=== PATIENT | male | born 1960 | race Caucasian/White ===

== ENCOUNTER 2020-01-17 17:40 | Inpatient (IN) | payer OTHER ==
[~2020-01-17] VITALS: Ht 185.4 cm; Wt 98.3 kg
[2020-01-17 17:35] VITALS: BP 130/64
--- NOTE | 2020-01-17 18:03 | PDOC1 ---
History and Physical Date of Admission: Date of Admission DATE: 01/17/20 TIME: 18:03 Chief Complaint: Chief Complain: Abdominal pain History of Present Illness: HPI: Patient is 59-year-old male with past medical history of COPD, chronic smoker who is transferred from [facility] for epigastric and periumbilical abdominal pain due to cholecystitis found on CT scan. Patient describes abdominal pain that started about 6 to 8 months ago, however last night patient woke up from the pain 10 out of 10 and also had some bloody stool. Pain travels up and down the midline. There are no exacerbating or alleviating factors. Patient has not seen a surgeon or a GI doctor for the his gallstones. This is the first time he is heard he had gallstones. Denies chest pain, shortness of breath, diarrhea, or fevers Past Medical/Surgical History: PMH/PSH: COPD History of dental extraction in the 80s Allergies: Allergies: Coded Allergies: No Known Drug Allergies (Unverified , 01/17/20) Family History: Family History: Review and none reported Social History: Social History: 2 pack smoker daily for more than 30 years ROS: Review of Systems Review of System REVIEW OF SYSTEMS: GENERAL: Denies weakness SKIN: No bruising, hair changes or rashes. EYES: No blurred, double or loss of vision. NOSE AND THROAT: No history of nosebleeds, hoarseness or sore throat. HEART: No history of palpitations, chest pain or shortness of breath on exertion. LUNGS: Denies cough, hemoptysis, wheezing or shortness of breath. GASTROINTESTINAL: Denies changes in appetite, nausea, vomiting, diarrhea or constipation. GENITOURINARY: No history of frequency, urgency, hesitancy or nocturia. NEUROLOGIC: Denies history of numbness, tingling, or tremor. PSYCHIATRIC: No history of panic, anxiety or depression. ENDOCRINE: No history of heat or cold intolerance, polyuria or polydipsia. EXTREMITIES: Denies joint pain, pain on walking or stiffness. Physical Exam: Vital Signs: Vital Signs Date Time Temp Pulse Resp B/P (MAP) Pulse Ox O2 Delivery O2 Flow Rate FiO2 01/17/20 17:35 99.2 70 18 130/64 (86) 97 Room Air 99.2 Physcial Exam: GEN: No apparent distress. Alert and oriented HEENT: Normal cephalic, atraumatic, external auditory canals are patent EYES: Extraocular muscles are intact, pupil are equally round and reactive to light and accommodation MUSCULOSKELETAL: Well developed , well nourished, good range of motion ENDOCRINE: No thyromegaly was palpated LYMPHATICS: No cervical chain or axillary nodes were noted HEMATOPOIETIC: No bruising NECK: Supple, no JVD, no thyromegaly was noted LUNGS: Clear to auscultation in all lung matta without rhonchi or wheezing HEART: RRR, S!, S2 present. Peripheral pulses intact, no obvious murmurs noted ABDOMEN: Soft, nontender. Positive bowel sounds, no organomegaly, normal bowel sounds EXTREMITIES: Without clubbing, cyanosis, or edema. Pedal pulses intact. Negative Homans sign NEUROLOGIC: Normal speech and tone. A&O x 3, moves all extremities, no obvious focal deficits PSYCHIATRIC: Normal affect, normal mood. Stable SKIN: No ulcerations or rashes, good skin turgor, no jaundice VASCULAR: Good capillary refill, neurovascular bundle appears to be intact Labs: Labs: All labs, images, and reports were reviewed by me personally (from [place] are in the chart Images: Images All labs, images, and reports were reviewed by me personally Assessment/Plan Assessment/Plan Acute abdominal pain due to acute cholecystitis COPD Admit to medicine Pending abdominal ultrasound Pending FOBT Surgery consult Serial abdominal exams Consider GI consult if dilated CBD and concern for choledocholithiasis IV Dilaudid as needed N.p.o. Lovenox for DVT prophylaxis, hold 12 hours before surgery Full code Discussed with RN and SW Dispo pending surgery evaluation Justicifation of Admission Dx: Justifications for Admission: Justification of Admission Dx: Yes (Acute cholecystitis) BELKIS WORTHY MD Jan 17, 2020 18:03
[2020-01-17] MEDS ORDERED: ESOM20CA PO (18:16)
[2020-01-17] MEDS ORDERED: MAGN296S68 PO (18:16)
[2020-01-17] MEDS ORDERED: IBUP-1060 PO (18:16)
[2020-01-17] MEDS ORDERED: ALBU2.5V8 IH (18:16)
[2020-01-17] MEDS ORDERED: FLUT1BLS3 IH (18:19)
[2020-01-17 19:00] VITALS: BP 103/60
--- NOTE | 2020-01-17 19:38 | NUR ---
59 yr old male admitted from [facility] with chief complaint of abdominal pain that started last evening around 2300. no emesis until around 1am. no blood noted. admission history completed. remains npo until dr. quan calls regarding surgery tonight. Dr. Gerber here orders for us abd iv fluids and pain med obtained. report given
--- NOTE | 2020-01-17 20:50 | RAD ---
Exam: Ultrasound abdomen complete Indication: Dilated common bile duct Technique: Real-time grayscale and color Doppler images of the abdomen were obtained by the department primary montessori teacher. Comparisons: CT 01/17/2020 FINDINGS: Liver contour is normal. Hepatopedal flow in the portal vein. Gallbladder is dilated with gallstones. There is pericholecystic fluid and wall thickening. Common bile duct measures 5 mm. Right kidney measures 11.5 cm in length. No hydronephrosis. Left kidney measures 11.4 cm in length. No hydronephrosis. Pancreas is not well seen secondary to overlying bowel gas. Spleen measures 11.1 cm in long axis. Aorta and IVC are not well seen. IMPRESSION: 1. Sonographic evidence suggestive of acute cholecystitis. 2. No hydronephrosis. 3. Normal sonographic appearance of the liver. 4. No splenomegaly. 5. Exam is limited secondary to bowel gas. Electronically signed by: Cinthya Barclay MD (01/17/2020 8:47 PM) [id number]
[2020-01-17 22:36] VITALS: BP 113/48
[2020-01-17] MEDS: IV NORMAL SALINE 1000ML BAG 1,000 ML IV SCH (22:45)
[2020-01-17] MEDS: HYDROmorphone 2 MG/ML VIAL IVP PRN (22:46)
--- NOTE | 2020-01-17 22:54 | NUR ---
Both Covid 19 test and Covid Rapid test collected at this time with help of ED Nurse, Candy SUAZO, Patient tolerated procedure well, both test was walked down to lab.
[2020-01-18] VITALS (11 sets, daily range): BP systolic 119–143; BP diastolic 64–81
[2020-01-18] MEDS: HYDROmorphone 2 MG/ML VIAL IVP PRN ×4 (06:46→22:29)
[2020-01-18] MEDS: IV NORMAL SALINE 1000ML BAG 1,000 ML IV SCH ×2 (06:47→14:10)
[2020-01-18] MEDS: IV RINGERS,LACTATED 1000ML 1,000 ML IV SCH ×4 (08:03→22:31)
[2020-01-18] MEDS ORDERED: ONDANSETRON PF 4 MG/2 ML VIAL. IV PRN (08:15)
[2020-01-18] MEDS ORDERED: MORPHINE SULFATE 2 MG/ML VIAL. IV PRN ×2 (08:15→14:00)
[2020-01-18] MEDS ORDERED: fentaNYL PF VIAL 100 MCG/2 ML VIAL IV PRN (08:15)
[2020-01-18] MEDS ORDERED: LIDOCAINE 1% PF 2 ML VIAL. ID PRN (08:15)
[2020-01-18] MEDS ORDERED: HYDROmorphone 2 MG/ML VIAL IV PRN (08:15)
[2020-01-18] MEDS ORDERED: PROCHLORPERAZINE 10 MG/2 ML VIAL. IV PRN (08:15)
[2020-01-18] MEDS: NICOTINE 21MG PATCH. TD PRN (10:01)
[2020-01-18 10:15] LABS: BASO % 0 % (0-3); EOS # 0.2 x10^3/uL (0.0-0.7); EOS % 2 % (0-3); HEMATOCRIT 38.9 % (39.0-53.0); HEMOGLOBIN 13.6 g/dL (13.0-17.5); LYMPH # 1.7 x10^3/uL (1.0-4.8); LYMPH % 14 % (24-48); MEAN CORPUSCULAR HEMOGLOBIN 32 pg (25-35); MEAN CORPUSCULAR HGB CONC 35 g/dL (31-37); MEAN CORPUSCULAR VOLUME 91 fL (79-100); MONO # 1.2 x10^3/uL (0.0-1.1); MONO % 10 % (0-9); NEUT % 75 % (31-73); PLATELET COUNT 244 x10^3/uL (140-400); RED BLOOD COUNT 4.29 x10^6/uL (4.30-5.70); RED CELL DISTRIBUTION WIDTH 14.1 % (11.5-14.5); WHITE BLOOD COUNT 12.1 x10^3/uL (4.0-11.0)
[2020-01-18 10:26] LABS: ALBUMIN 2.7 g/dL (3.4-5.0); ALBUMIN/GLOBULIN RATIO 0.7 (1.0-1.7); POTASSIUM 4.3 mmol/L (3.5-5.1); TOTAL BILIRUBIN 0.7 mg/dL (0.2-1.0); TOTAL PROTEIN 6.8 g/dL (6.4-8.2)
[2020-01-18] MEDS ORDERED: ceFAZolin 2GM PREMIX 2 GM/50 ML BAG IV ONE (11:00)
--- NOTE | 2020-01-18 11:07 | NUR ---
SW following. Discussed with RN, pt from home with family, independent. Pt having surgery today. RN advised no SW needs.
--- NOTE | 2020-01-18 11:27 | NUR ---
Patient left floor for surgery at approximately 1101
[2020-01-18] MEDS ORDERED: fentaNYL PF VIAL 100 MCG/2 ML VIAL ONE ×3 (11:39→14:11)
[2020-01-18] MEDS ORDERED: ROCURONIUM 50 MG/5 ML VIAL. ONE ×2 (11:39→13:12)
[2020-01-18] MEDS ORDERED: SEVOFLURANE 61 TO 120 MINUTES. IH ONE (11:39)
[2020-01-18] MEDS ORDERED: NEOSTIGMINE METHYLSULFATE 5 MG/5 ML SYRINGE. ONE (11:39)
[2020-01-18] MEDS ORDERED: MIDAZOLAM HCL/PF 2 MG/2 ML VIAL. ONE (11:39)
[2020-01-18] MEDS ORDERED: GLYCOPYRROLATE 1 MG/5 ML VIAL. ONE (11:39)
[2020-01-18] MEDS ORDERED: KETOROLAC 30 MG/ML VIAL. ONE (11:40)
[2020-01-18] MEDS ORDERED: ONDANSETRON PF 4 MG/2 ML VIAL. ONE (11:40)
[2020-01-18] MEDS ORDERED: DEXAMETHASONE SOD PHOS 4 MG/ML VIAL ONE (11:40)
[2020-01-18] MEDS ORDERED: LIDOCAINE 2% PF 5 ML VIAL. ONE (11:40)
[2020-01-18] MEDS ORDERED: PROPOFOL 10 MG/ML (20ML) VIAL. IV ONE ×2 (11:40)
[2020-01-18] MEDS ORDERED: SURGICEL HEMOSTAT 4X8 EACH. ONE (11:42)
[2020-01-18] MEDS ORDERED: IOHEXOL 300 MG/ML 50 ML VIAL. ONE (11:42)
[2020-01-18] MEDS ORDERED: BISACODYL 10 MG SUPP.RECT. ONE (11:42)
[2020-01-18] MEDS ORDERED: BUPIVACAINE-EPI 0.5%-1:200000 MPF 30 ML VIAL. ONE (11:42)
[2020-01-18] MEDS ORDERED: HEPARIN for IV BOLUS 10,000 UNIT/10 ML VIAL. ONE (11:42)
[2020-01-18] MEDS ORDERED: ALBUTEROL SULFATE 2.5 MG/3 ML NEBU. NEB PRN (12:15)
--- NOTE | 2020-01-18 12:32 | PDOC2 ---
CONSULT Date of Consult Date of Consult DATE: 01/18/20 TIME: 12:27 Reason for Consult Reason for Consult: Calculous cholecystitis Referring Physician Referring Physician: Dr. Renner Identification/Chief Complaint Chief Complaint abd pain Source Source: Chart review, Patient History of Present Illness Reason for Visit: 59 yo M with 6-8 month history of abd pain, treated with laxatives with resolution. However, pain worsened over last couple of days with associated chills. He was seen in [facility] with diagnosis of cholecystitis. He is seen in preop and continues to have pain. Past Medical History Pulmonary: COPD Past Surgical History Past Surgical History: No pertinent history Family History Family History: No Significant Social History 2 packs per day ALCOHOL: rare Current Medications Current Medications Current Medications Hydromorphone HCl (Dilaudid) 0.2 mg PRN Q2HRS PRN IVP PAIN Last administered on 01/18/20at 09:04; Start 01/17/20 at 19:00 Sodium Chloride 1,000 ml @ 100 mls/hr Q10H IV Last administered on 01/18/20at 06:47; Start 01/17/20 at 19:30 Cefazolin Sodium/ Dextrose 50 ml @ 100 mls/hr 1X PREOP PRN IV PRIOR TO PROCEDURE; Start 01/18/20 at 12:00; Stop 01/18/20 at 18:00 Ondansetron HCl (Zofran) 4 mg PRN Q6HRS PRN IV NAUSEA/VOMITING; Start 01/18/20 at 08:15; Stop 01/19/20 at 08:14 Fentanyl Citrate (Fentanyl 2ml Vial) 25 mcg PRN Q5MIN PRN IV MILD PAIN 1-3; Start 01/18/20 at 08:15; Stop 01/19/20 at 08:14 Fentanyl Citrate (Fentanyl 2ml Vial) 50 mcg PRN Q5MIN PRN IV MODERATE TO SEVERE PAIN; Start 01/18/20 at 08:15; Stop 01/19/20 at 08:14 Morphine Sulfate (Morphine Sulfate) 1 mg PRN Q10MIN PRN IV SEVERE PAIN 7-10; Start 01/18/20 at 08:15; Stop 01/19/20 at 08:14 Ringer's Solution 1,000 ml @ 30 mls/hr Q24H IV ; Start 01/18/20 at 08:03; Stop 01/18/20 at 20:02 Lidocaine HCl (Xylocaine-Mpf 1% 2ml Vial) 2 ml PRN 1X PRN ID PRIOR TO IV START; Start 01/18/20 at 08:15; Stop 01/19/20 at 08:14 Hydromorphone HCl (Dilaudid) 0.5 mg PRN Q10MIN PRN IV SEV PAIN, Second choice; Start 01/18/20 at 08:15; Stop 01/19/20 at 08:14 Prochlorperazine Edisylate (Compazine) 5 mg PACU PRN PRN IV NAUSEA, MRX1; Start 01/18/20 at 08:15; Stop 01/19/20 at 08:14 Nicotine (Nicoderm Cq 21mg) 1 patch PRN DAILY PRN TD SMOKING CESSATION Last administered on 01/18/20at 10:01; Start 01/18/20 at 09:30 Sevoflurane (Ultane) 60 ml STK-MED ONCE IH ; Start 01/18/20 at 11:39; Stop 01/18/20 at 11:39; Status DC Rocuronium Batson (Zemuron) 50 mg STK-MED ONCE .ROUTE ; Start 01/18/20 at 11:39; Stop 01/18/20 at 11:39; Status DC Fentanyl Citrate (Fentanyl 2ml Vial) 100 mcg STK-MED ONCE .ROUTE ; Start 01/18/20 at 11:39; Stop 01/18/20 at 11:39; Status DC Neostigmine Batson (Neostigmine Methylsulfate) 5 mg STK-MED ONCE .ROUTE ; Start 01/18/20 at 11:39; Stop 01/18/20 at 11:39; Status DC Midazolam HCl (Versed) 2 mg STK-MED ONCE .ROUTE ; Start 01/18/20 at 11:39; Stop 01/18/20 at 11:40; Status DC Glycopyrrolate (Robinul) 1 mg STK-MED ONCE .ROUTE ; Start 01/18/20 at 11:39; Stop 01/18/20 at 11:40; Status DC Propofol (Diprivan) 200 mg STK-MED ONCE IV ; Start 01/18/20 at 11:40; Stop 01/18/20 at 11:40; Status DC Propofol (Diprivan) 200 mg STK-MED ONCE IV ; Start 01/18/20 at 11:40; Stop 01/18/20 at 11:40; Status DC Ondansetron HCl (Zofran) 4 mg STK-MED ONCE .ROUTE ; Start 01/18/20 at 11:40; Stop 01/18/20 at 11:40; Status DC Dexamethasone Sodium Phosphate (Decadron) 4 mg STK-MED ONCE .ROUTE ; Start 01/17 at 11:40; Stop 01/18/20 at 11:40; Status DC Ketorolac Tromethamine (Toradol 30mg Vial) 30 mg STK-MED ONCE .ROUTE ; Start at 11:40; Stop 01/18/20 at 11:40; Status DC Lidocaine HCl (Lidocaine Pf 2% Vial) 5 ml STK-MED ONCE .ROUTE ; Start 01/18/20 at 11:40; Stop 01/18/20 at 11:40; Status DC Bupivacaine HCl/ Epinephrine Bitart (Sensorcain-Epi 0.5%-1:080195 Mpf) 30 ml STK -MED ONCE .ROUTE ; Start 01/18/20 at 11:42; Stop 01/18/20 at 11:42; Status DC Heparin Sodium (Porcine) (Heparin Sodium) 10,000 unit STK-MED ONCE .ROUTE ; Start 01/18/20 at 11:42; Stop 01/18/20 at 11:42; Status DC Iohexol (Omnipaque 300 Mg/ml) 50 ml STK-MED ONCE .ROUTE ; Start 01/18/20 at 11:42; Stop 01/18/20 at 11:42; Status DC Cellulose (Surgicel Hemostat 4x8) 1 each STK-MED ONCE .ROUTE ; Start 01/18/20 at 11:42; Stop 01/18/20 at 11:42; Status DC Bisacodyl (Dulcolax Supp) 10 mg STK-MED ONCE .ROUTE ; Start 01/18/20 at 11:42; Stop 01/18/20 at 11:43; Status DC Albuterol Sulfate (Ventolin Neb Soln) 2.5 mg PRN Q30MIN PRN NEB COUGH Last administered on 01/18/20at 12:11; Start 01/18/20 at 12:15 Active Scripts Active Reported Trelegy Ellipta 100-62.5-25 (Fluticasone/Umeclidin/Vilanter) 1 Each Blst.w.dev 1 Each IH DAILY Ibuprofen 800 Mg Tablet 800 Mg PO BID PRN Magnesium Citrate 296 Ml Solution 75 Ml PO HS Nexium Capsule (Esomeprazole Magnesium) 20 Mg Capsule.dr 1 Cap PO DAILY Proair Hfa Inhaler (Albuterol Sulfate) 8.5 Gm Hfa.aer.ad 2 Puff IH PRN Q4-6HRS PRN 21 Days Allergies Allergies: Coded Allergies: No Known Drug Allergies (Unverified , 01/17/20) ROS Gastrointestinal: Yes Abdominal Pain Physical Exam General: Alert, Oriented X3, Cooperative, mild distress HEENT: Atraumatic Lungs: Normal air movement Abdomen: Soft, Other (mild TTP RUQ) Extremities: No clubbing, No cyanosis Skin: No rashes, No breakdown Neuro: Normal speech, Sensation intact Psych/Mental Status: Mental status NL, Mood NL Vitals VITALS Vital Signs Date Time Temp Pulse Resp B/P (MAP) Pulse Ox O2 Delivery O2 Flow Rate FiO2 01/18/20 11:10 98.1 71 15 112/58 94 Room Air 98.1 Labs Labs Laboratory Tests Test 01/17/20 22:17 01/18/20 09:55 SARS-CoV-2 Antigen (Rapid) Negative (NEGATIVE) White Blood Count 12.1 x10^3/uL (4.0-11.0) Red Blood Count 4.29 x10^6/uL (4.30-5.70) Hemoglobin 13.6 g/dL (13.0-17.5) Hematocrit 38.9 % (39.0-53.0) Mean Corpuscular Volume 91 fL (79-100) Mean Corpuscular Hemoglobin 32 pg (25-35) Mean Corpuscular Hemoglobin Concent 35 g/dL (31-37) Red Cell Distribution Width 14.1 % (11.5-14.5) Platelet Count 244 x10^3/uL (140-400) Neutrophils (%) (Auto) 75 % (31-73) Lymphocytes (%) (Auto) 14 % (24-48) Monocytes (%) (Auto) 10 % (0-9) Eosinophils (%) (Auto) 2 % (0-3) Basophils (%) (Auto) 0 % (0-3) Neutrophils # (Auto) 9.0 x10^3/uL (1.8-7.7) Lymphocytes # (Auto) 1.7 x10^3/uL (1.0-4.8) Monocytes # (Auto) 1.2 x10^3/uL (0.0-1.1) Eosinophils # (Auto) 0.2 x10^3/uL (0.0-0.7) Basophils # (Auto) 0.0 x10^3/uL (0.0-0.2) Sodium Level 135 mmol/L (136-145) Potassium Level 4.3 mmol/L (3.5-5.1) Chloride Level 101 mmol/L (98-107) Carbon Dioxide Level 28 mmol/L (21-32) Anion Gap 6 (6-14) Blood Urea Nitrogen 7 mg/dL (8-26) Creatinine 1.0 mg/dL (0.7-1.3) Estimated GFR (Cockcroft-Gault) 77.0 BUN/Creatinine Ratio 7 (6-20) Glucose Level 93 mg/dL (70-99) Calcium Level 8.0 mg/dL (8.5-10.1) Total Bilirubin 0.7 mg/dL (0.2-1.0) Aspartate Amino Transf (AST/SGOT) 14 U/L (15-37) Alanine Aminotransferase (ALT/SGPT) 19 U/L (16-63) Alkaline Phosphatase 97 U/L (46-116) Total Protein 6.8 g/dL (6.4-8.2) Albumin 2.7 g/dL (3.4-5.0) Albumin/Globulin Ratio 0.7 (1.0-1.7) Laboratory Tests Test 01/17/20 22:17 01/18/20 09:55 SARS-CoV-2 Antigen (Rapid) Negative (NEGATIVE) White Blood Count 12.1 x10^3/uL (4.0-11.0) Red Blood Count 4.29 x10^6/uL (4.30-5.70) Hemoglobin 13.6 g/dL (13.0-17.5) Hematocrit 38.9 % (39.0-53.0) Mean Corpuscular Volume 91 fL (79-100) Mean Corpuscular Hemoglobin 32 pg (25-35) Mean Corpuscular Hemoglobin Concent 35 g/dL (31-37) Red Cell Distribution Width 14.1 % (11.5-14.5) Platelet Count 244 x10^3/uL (140-400) Neutrophils (%) (Auto) 75 % (31-73) Lymphocytes (%) (Auto) 14 % (24-48) Monocytes (%) (Auto) 10 % (0-9) Eosinophils (%) (Auto) 2 % (0-3) Basophils (%) (Auto) 0 % (0-3) Neutrophils # (Auto) 9.0 x10^3/uL (1.8-7.7) Lymphocytes # (Auto) 1.7 x10^3/uL (1.0-4.8) Monocytes # (Auto) 1.2 x10^3/uL (0.0-1.1) Eosinophils # (Auto) 0.2 x10^3/uL (0.0-0.7) Basophils # (Auto) 0.0 x10^3/uL (0.0-0.2) Sodium Level 135 mmol/L (136-145) Potassium Level 4.3 mmol/L (3.5-5.1) Chloride Level 101 mmol/L (98-107) Carbon Dioxide Level 28 mmol/L (21-32) Anion Gap 6 (6-14) Blood Urea Nitrogen 7 mg/dL (8-26) Creatinine 1.0 mg/dL (0.7-1.3) Estimated GFR (Cockcroft-Gault) 77.0 BUN/Creatinine Ratio 7 (6-20) Glucose Level 93 mg/dL (70-99) Calcium Level 8.0 mg/dL (8.5-10.1) Total Bilirubin 0.7 mg/dL (0.2-1.0) Aspartate Amino Transf (AST/SGOT) 14 U/L (15-37) Alanine Aminotransferase (ALT/SGPT) 19 U/L (16-63) Alkaline Phosphatase 97 U/L (46-116) Total Protein 6.8 g/dL (6.4-8.2) Albumin 2.7 g/dL (3.4-5.0) Albumin/Globulin Ratio 0.7 (1.0-1.7) Images Images Ct and US c/w calculous cholecystitis Assessment/Plan Assessment/Plan calculous cholecystitis TO OR for laparoscopic versus open cholecystectomy with cholangiogram. R/R/B/A d/w pt. Risks, including, but not limited to: bleeding, infection, damage to surrounding structures, risk of anesthesia, risk of open, risk of . He appears to understand, his questions are answered and he elects to proceed. Thanks for consult! JEWELS MCRAE MD Jan 18, 2020 12:32
[2020-01-18] MEDS ORDERED: PHENYLEPHRINE in 0.9% NACL PF 1 MG/10 ML SYRINGE. IV ONE (12:35)
[2020-01-18] MEDS ORDERED: GLUCAGON,HUMAN RECOMBINANT 1 MG/ML VIAL. ONE (13:00)
--- NOTE | 2020-01-18 13:36 | PDOC ---
PROGRESS NOTES Chief Complaint Chief Complaint acute cholecystitis calculous cholecystitis stable COPD History of Present Illness History of Present Illness to OR, , plan DC eval after, maybe tomorrow if late today Vitals Vitals Vital Signs Date Time Temp Pulse Resp B/P (MAP) Pulse Ox O2 Delivery O2 Flow Rate FiO2 01/18/20 11:10 98.1 71 15 112/58 94 Room Air 98.1 Physical Exam General: Alert, Oriented X3, Cooperative, mild distress Abdomen: Soft, Other (mild TTP RUQ) Extremities: No clubbing, No cyanosis Skin: No rashes, No breakdown Labs LABS Laboratory Tests Test 01/17/20 22:17 01/18/20 09:55 SARS-CoV-2 Antigen (Rapid) Negative (NEGATIVE) White Blood Count 12.1 x10^3/uL (4.0-11.0) Red Blood Count 4.29 x10^6/uL (4.30-5.70) Hemoglobin 13.6 g/dL (13.0-17.5) Hematocrit 38.9 % (39.0-53.0) Mean Corpuscular Volume 91 fL (79-100) Mean Corpuscular Hemoglobin 32 pg (25-35) Mean Corpuscular Hemoglobin Concent 35 g/dL (31-37) Red Cell Distribution Width 14.1 % (11.5-14.5) Platelet Count 244 x10^3/uL (140-400) Neutrophils (%) (Auto) 75 % (31-73) Lymphocytes (%) (Auto) 14 % (24-48) Monocytes (%) (Auto) 10 % (0-9) Eosinophils (%) (Auto) 2 % (0-3) Basophils (%) (Auto) 0 % (0-3) Neutrophils # (Auto) 9.0 x10^3/uL (1.8-7.7) Lymphocytes # (Auto) 1.7 x10^3/uL (1.0-4.8) Monocytes # (Auto) 1.2 x10^3/uL (0.0-1.1) Eosinophils # (Auto) 0.2 x10^3/uL (0.0-0.7) Basophils # (Auto) 0.0 x10^3/uL (0.0-0.2) Sodium Level 135 mmol/L (136-145) Potassium Level 4.3 mmol/L (3.5-5.1) Chloride Level 101 mmol/L (98-107) Carbon Dioxide Level 28 mmol/L (21-32) Anion Gap 6 (6-14) Blood Urea Nitrogen 7 mg/dL (8-26) Creatinine 1.0 mg/dL (0.7-1.3) Estimated GFR (Cockcroft-Gault) 77.0 BUN/Creatinine Ratio 7 (6-20) Glucose Level 93 mg/dL (70-99) Calcium Level 8.0 mg/dL (8.5-10.1) Total Bilirubin 0.7 mg/dL (0.2-1.0) Aspartate Amino Transf (AST/SGOT) 14 U/L (15-37) Alanine Aminotransferase (ALT/SGPT) 19 U/L (16-63) Alkaline Phosphatase 97 U/L (46-116) Total Protein 6.8 g/dL (6.4-8.2) Albumin 2.7 g/dL (3.4-5.0) Albumin/Globulin Ratio 0.7 (1.0-1.7) Comment Review of Relevant I have reviewed the following items fannie (where applicable) has been applied. Labs Laboratory Tests Test 01/17/20 22:17 01/18/20 09:55 SARS-CoV-2 Antigen (Rapid) Negative (NEGATIVE) White Blood Count 12.1 x10^3/uL (4.0-11.0) Red Blood Count 4.29 x10^6/uL (4.30-5.70) Hemoglobin 13.6 g/dL (13.0-17.5) Hematocrit 38.9 % (39.0-53.0) Mean Corpuscular Volume 91 fL (79-100) Mean Corpuscular Hemoglobin 32 pg (25-35) Mean Corpuscular Hemoglobin Concent 35 g/dL (31-37) Red Cell Distribution Width 14.1 % (11.5-14.5) Platelet Count 244 x10^3/uL (140-400) Neutrophils (%) (Auto) 75 % (31-73) Lymphocytes (%) (Auto) 14 % (24-48) Monocytes (%) (Auto) 10 % (0-9) Eosinophils (%) (Auto) 2 % (0-3) Basophils (%) (Auto) 0 % (0-3) Neutrophils # (Auto) 9.0 x10^3/uL (1.8-7.7) Lymphocytes # (Auto) 1.7 x10^3/uL (1.0-4.8) Monocytes # (Auto) 1.2 x10^3/uL (0.0-1.1) Eosinophils # (Auto) 0.2 x10^3/uL (0.0-0.7) Basophils # (Auto) 0.0 x10^3/uL (0.0-0.2) Sodium Level 135 mmol/L (136-145) Potassium Level 4.3 mmol/L (3.5-5.1) Chloride Level 101 mmol/L (98-107) Carbon Dioxide Level 28 mmol/L (21-32) Anion Gap 6 (6-14) Blood Urea Nitrogen 7 mg/dL (8-26) Creatinine 1.0 mg/dL (0.7-1.3) Estimated GFR (Cockcroft-Gault) 77.0 BUN/Creatinine Ratio 7 (6-20) Glucose Level 93 mg/dL (70-99) Calcium Level 8.0 mg/dL (8.5-10.1) Total Bilirubin 0.7 mg/dL (0.2-1.0) Aspartate Amino Transf (AST/SGOT) 14 U/L (15-37) Alanine Aminotransferase (ALT/SGPT) 19 U/L (16-63) Alkaline Phosphatase 97 U/L (46-116) Total Protein 6.8 g/dL (6.4-8.2) Albumin 2.7 g/dL (3.4-5.0) Albumin/Globulin Ratio 0.7 (1.0-1.7) Laboratory Tests Test 01/17/20 22:17 01/18/20 09:55 SARS-CoV-2 Antigen (Rapid) Negative (NEGATIVE) White Blood Count 12.1 x10^3/uL (4.0-11.0) Red Blood Count 4.29 x10^6/uL (4.30-5.70) Hemoglobin 13.6 g/dL (13.0-17.5) Hematocrit 38.9 % (39.0-53.0) Mean Corpuscular Volume 91 fL (79-100) Mean Corpuscular Hemoglobin 32 pg (25-35) Mean Corpuscular Hemoglobin Concent 35 g/dL (31-37) Red Cell Distribution Width 14.1 % (11.5-14.5) Platelet Count 244 x10^3/uL (140-400) Neutrophils (%) (Auto) 75 % (31-73) Lymphocytes (%) (Auto) 14 % (24-48) Monocytes (%) (Auto) 10 % (0-9) Eosinophils (%) (Auto) 2 % (0-3) Basophils (%) (Auto) 0 % (0-3) Neutrophils # (Auto) 9.0 x10^3/uL (1.8-7.7) Lymphocytes # (Auto) 1.7 x10^3/uL (1.0-4.8) Monocytes # (Auto) 1.2 x10^3/uL (0.0-1.1) Eosinophils # (Auto) 0.2 x10^3/uL (0.0-0.7) Basophils # (Auto) 0.0 x10^3/uL (0.0-0.2) Sodium Level 135 mmol/L (136-145) Potassium Level 4.3 mmol/L (3.5-5.1) Chloride Level 101 mmol/L (98-107) Carbon Dioxide Level 28 mmol/L (21-32) Anion Gap 6 (6-14) Blood Urea Nitrogen 7 mg/dL (8-26) Creatinine 1.0 mg/dL (0.7-1.3) Estimated GFR (Cockcroft-Gault) 77.0 BUN/Creatinine Ratio 7 (6-20) Glucose Level 93 mg/dL (70-99) Calcium Level 8.0 mg/dL (8.5-10.1) Total Bilirubin 0.7 mg/dL (0.2-1.0) Aspartate Amino Transf (AST/SGOT) 14 U/L (15-37) Alanine Aminotransferase (ALT/SGPT) 19 U/L (16-63) Alkaline Phosphatase 97 U/L (46-116) Total Protein 6.8 g/dL (6.4-8.2) Albumin 2.7 g/dL (3.4-5.0) Albumin/Globulin Ratio 0.7 (1.0-1.7) Medications Current Medications Hydromorphone HCl (Dilaudid) 0.2 mg PRN Q2HRS PRN IVP PAIN Last administered on 01/18/20at 09:04; Start 01/17/20 at 19:00 Sodium Chloride 1,000 ml @ 100 mls/hr Q10H IV Last administered on 01/18/20at 06:47; Start 01/17/20 at 19:30 Cefazolin Sodium/ Dextrose 50 ml @ 100 mls/hr 1X PREOP PRN IV PRIOR TO PROCEDURE; Start 01/18/20 at 12:00; Stop 01/18/20 at 18:00 Ondansetron HCl (Zofran) 4 mg PRN Q6HRS PRN IV NAUSEA/VOMITING; Start 01/18/20 at 08:15; Stop 01/19/20 at 08:14 Fentanyl Citrate (Fentanyl 2ml Vial) 25 mcg PRN Q5MIN PRN IV MILD PAIN 1-3; Start 01/18/20 at 08:15; Stop 01/19/20 at 08:14 Fentanyl Citrate (Fentanyl 2ml Vial) 50 mcg PRN Q5MIN PRN IV MODERATE TO SEVERE PAIN; Start 01/18/20 at 08:15; Stop 01/19/20 at 08:14 Morphine Sulfate (Morphine Sulfate) 1 mg PRN Q10MIN PRN IV SEVERE PAIN 7-10; Start 01/18/20 at 08:15; Stop 01/19/20 at 08:14 Ringer's Solution 1,000 ml @ 30 mls/hr Q24H IV ; Start 01/18/20 at 08:03; Stop 01/18/20 at 20:02 Lidocaine HCl (Xylocaine-Mpf 1% 2ml Vial) 2 ml PRN 1X PRN ID PRIOR TO IV START; Start 01/18/20 at 08:15; Stop 01/19/20 at 08:14 Hydromorphone HCl (Dilaudid) 0.5 mg PRN Q10MIN PRN IV SEV PAIN, Second choice; Start 01/18/20 at 08:15; Stop 01/19/20 at 08:14 Prochlorperazine Edisylate (Compazine) 5 mg PACU PRN PRN IV NAUSEA, MRX1; Start 01/18/20 at 08:15; Stop 01/19/20 at 08:14 Nicotine (Nicoderm Cq 21mg) 1 patch PRN DAILY PRN TD SMOKING CESSATION Last administered on 01/18/20at 10:01; Start 01/18/20 at 09:30 Sevoflurane (Ultane) 60 ml STK-MED ONCE IH ; Start 01/18/20 at 11:39; Stop 01/18/20 at 11:39; Status DC Rocuronium [place] (Zemuron) 50 mg STK-MED ONCE .ROUTE ; Start 01/18/20 at 11:39; Stop 01/18/20 at 11:39; Status DC Fentanyl Citrate (Fentanyl 2ml Vial) 100 mcg STK-MED ONCE .ROUTE ; Start 01/18/20 at 11:39; Stop 01/18/20 at 11:39; Status DC Neostigmine [place] (Neostigmine Methylsulfate) 5 mg STK-MED ONCE .ROUTE ; Start 01/18/20 at 11:39; Stop 01/18/20 at 11:39; Status DC Midazolam HCl (Versed) 2 mg STK-MED ONCE .ROUTE ; Start 01/18/20 at 11:39; Stop 01/18/20 at 11:40; Status DC Glycopyrrolate (Robinul) 1 mg STK-MED ONCE .ROUTE ; Start 01/18/20 at 11:39; Stop 01/18/20 at 11:40; Status DC Propofol (Diprivan) 200 mg STK-MED ONCE IV ; Start 01/18/20 at 11:40; Stop 01/18/20 at 11:40; Status DC Propofol (Diprivan) 200 mg STK-MED ONCE IV ; Start 01/18/20 at 11:40; Stop 01/18/20 at 11:40; Status DC Ondansetron HCl (Zofran) 4 mg STK-MED ONCE .ROUTE ; Start 01/18/20 at 11:40; Stop 01/18/20 at 11:40; Status DC Dexamethasone Sodium Phosphate (Decadron) 4 mg STK-MED ONCE .ROUTE ; Start 01/18/20 at 11:40; Stop 01/18/20 at 11:40; Status DC Ketorolac Tromethamine (Toradol 30mg Vial) 30 mg STK-MED ONCE .ROUTE ; Start 01/18/20 at 11:40; Stop 01/18/20 at 11:40; Status DC Lidocaine HCl (Lidocaine Pf 2% Vial) 5 ml STK-MED ONCE .ROUTE ; Start 01/18/20 at 11:40; Stop 01/18/20 at 11:40; Status DC Bupivacaine HCl/ Epinephrine Bitart (Sensorcain-Epi 0.5%-1:347171 Mpf) 30 ml STK-MED ONCE .ROUTE Last administered on 01/18/20at 13:15; Start 01/18/20 at 11:42; Stop 01/18/20 at 11:42; Status DC Heparin Sodium (Porcine) (Heparin Sodium) 10,000 unit STK-MED ONCE .ROUTE Last administered on 01/18/20at 13:12; Start 01/18/20 at 11:42; Stop 01/18/20 at 11:42; Status DC Iohexol (Omnipaque 300 Mg/ml) 50 ml STK-MED ONCE .ROUTE Last administered on 01/18/20at 13:15; Start 01/18/20 at 11:42; Stop 01/18/20 at 11:42; Status DC Cellulose (Surgicel Hemostat 4x8) 1 each STK-MED ONCE .ROUTE Last administered on 01/18/20at 13:28; Start 01/18/20 at 11:42; Stop 01/18/20 at 11:42; Status DC Bisacodyl (Dulcolax Supp) 10 mg STK-MED ONCE .ROUTE ; Start 01/18/20 at 11:42; Stop 01/18/20 at 11:43; Status DC Albuterol Sulfate (Ventolin Neb Soln) 2.5 mg PRN Q30MIN PRN NEB COUGH Last administered on 01/18/20at 12:11; Start 01/18/20 at 12:15 Phenylephrine HCl (PHENYLEPHRINE in 0.9% NACL PF) 1 mg STK-MED ONCE IV ; Start 01/18/20 at 12:35; Stop 01/18/20 at 12:35; Status DC Glucagon (Glucagen) 1 mg STK-MED ONCE .ROUTE ; Start 01/18/20 at 13:00; Stop 01/18/20 at 13:00; Status DC Rocuronium [place] (Zemuron) 50 mg STK-MED ONCE .ROUTE ; Start 01/18/20 at 13:12; Stop 01/18/20 at 13:13; Status DC Active Scripts Active Reported Trelegy Ellipta 100-62.5-25 (Fluticasone/Umeclidin/Vilanter) 1 Each Blst.w.dev 1 Each IH DAILY Ibuprofen 800 Mg Tablet 800 Mg PO BID PRN Magnesium Citrate 296 Ml Solution 75 Ml PO HS Nexium Capsule (Esomeprazole Magnesium) 20 Mg Capsule.dr 1 Cap PO DAILY Proair Hfa Inhaler (Albuterol Sulfate) 8.5 Gm Hfa.aer.ad 2 Puff IH PRN Q4-6HRS PRN 21 Days Vitals/I & O Vital Sign - Last 24 Hours 01/17/20 01/17/20 01/17/20 01/17/20 17:35 19:00 19:24 20:00 Temp 99.2 99.9 99.2 99.9 Pulse 70 82 Resp 18 24 B/P (MAP) 130/64 (86) 103/60 (74) Pulse Ox 97 95 O2 Delivery Room Air Room Air Room Air Room Air 01/17/20 01/17/20 01/17/20 01/18/20 22:36 22:46 23:16 03:00 Temp 99.5 99.3 99.5 99.3 Pulse 71 84 Resp 18 18 18 20 B/P (MAP) 113/48 (69) 128/68 (88) Pulse Ox 93 93 93 92 O2 Delivery Room Air Room Air Room Air Room Air 01/18/20 01/18/20 01/18/20 01/18/20 06:46 07:00 07:16 08:00 Temp 99.1 99.1 Pulse 77 Resp 18 20 B/P (MAP) 119/64 (82) Pulse Ox 92 92 O2 Delivery Room Air Room Air Room Air Room Air 01/18/20 01/18/20 01/18/20 01/18/20 09:04 09:34 10:44 11:10 Temp 97.8 98.1 97.8 98.1 Pulse 70 71 Resp 18 15 B/P (MAP) 137/73 (94) 112/58 Pulse Ox 95 94 O2 Delivery Room Air Room Air Room Air Room Air Intake and Output 01/17/20 01/17/20 01/18/20 15:00 23:00 07:00 Output Total 200 ml Balance -200 ml Justicifation of Admission Dx: Justifications for Admission: Justification of Admission Dx: Yes (Acute cholecystitis) RITA HICKEY MD Jan 18, 2020 13:36
[2020-01-18] MEDS ORDERED: IV NORMAL SALINE 1000ML BAG 1,000 ML IV SCH (13:49)
[2020-01-18] MEDS ORDERED: NALOXONE 0.4 MG/ML VIAL. IV PRN (14:00)
[2020-01-18] MEDS ORDERED: 0.9 % SODIUM CHLORIDE 10 ML DISP.SYRIN. IV PRN (14:00)
[2020-01-18] MEDS ORDERED: DEXTROSE 50% 25 GM / 50ML DISP.SYRIN. IV PRN (14:00)
--- NOTE | 2020-01-18 14:08 | PDOC4 ---
OPERATIVE NOTE Date: Date: Jan 18, 2020 Pre-Op Diagnosis: Calculous cholecystitis Post-Op Diagnosis: same, choledocholithiasis Procedure Performed: laparoscopic cholecystectomy with cholangiogram, common bile duct exploration Surgeon: Brayan Mcrae Anesthesia Type: GETA plus local Blood Loss: 100 Specimans Obtained: gallbladder Findings: edematous, distended, gangrenous gallbladder, suspected distal common bile duct with clearance. Complications: none Operative Note: After obtaining informed consent, patient was taken to OR, induced under GETA and prepped in the usual fashion. 5 mm port placed umbilical and RUQ, 12 port placed epigastric, all under laparoscopic guidance. Abdominal cavity was explored and noted as above. Large amount of intraabdominal visceral fat. Gallbladder was grasped and triangle of calot exposed. Cystic artery ligated with clips. Cholangiogram was obtained via cystic duct and demonstrated concern for stone in distal duct. Glucagon and charlotte catheter was used to clear the duct and repeat imaging demonstrated clearance. Proximal filling defect discussed with radiology but appears to be air bubble. Cystic duct ligated with hemolok and clips. Gallbladder taken off fossa using cautery, placed in bag, delivered and sent to pathology for evaluation. Copious irrigation. Hemostasis obtained with cautery and surgicel placed. 19 GIULIANA drained placed in fossa and secured with 3 0 nylon. Ports removed without bleeding. Fascia repaired with 0 vicryl. Skin repaired with 4 0 monocryl. Dressing placed. Patient tolerated procedure well and sent to PACU in stable condition. All counts correct. Wound class is 4. JEWELS MCRAE MD Jan 18, 2020 14:08
[2020-01-18] MEDS: fentaNYL PF VIAL 100 MCG/2 ML VIAL IV PRN ×2 (14:16→14:40)
--- NOTE | 2020-01-18 14:56 | RAD ---
Intraoperative cholangiogram INDICATION: Cholecystectomy. Assess for choledocholithiasis. COMPARISON: Complete abdominal ultrasound 01/17/2020 FINDINGS: The first 2 images time stamped 12:56:37 PM and 12:56:51 PM show cholecystectomy with cholangiography through the cystic duct stump with no filling defects but incomplete filling of the distal left biliary radicals. The next 2 images (images 4 and 5) time stamped at 1:18:07 PM and 1:18:48 PM show better filling of the left-sided biliary radicles and in addition show small filling defect in the proximal common bile duct new from the previous 2 images that could represent a tiny air bubble versus retained, nonobstructing common bile duct stone. On all images, the contrast material in the common bile duct drains appropriately in the duodenum. 4 images were acquired for procedural documentation using a total fluoroscopy time 47.5 seconds. IMPRESSION: Intraoperative cholangiogram showing no evidence of a bile leak but on latter images, presence of a filling defect in the proximal common bile duct that could represent a gallstone versus more likely a small air bubble. Discussed with Dr. Danielle by telephone at 1:40 PM on 01/18/2020. Electronically signed by: Rolanda Robb MD (01/18/2020 2:54 PM) [id number]
[2020-01-18] MEDS: HYDROcodone/APAP 5/325MG 1 TAB TABLET PO PRN (19:06)
[2020-01-18] MEDS: DOCUSATE SODIUM 100 MG CAPSULE. PO SCH (21:00)
[2020-01-19] MEDS: IV NORMAL SALINE 1000ML BAG 1,000 ML IV SCH ×2 (01:30→07:19)
[2020-01-19] MEDS: HYDROmorphone 2 MG/ML VIAL IVP PRN (01:55)
[2020-01-19 03:04] VITALS: BP 146/78
[2020-01-19] MEDS: HYDROcodone/APAP 5/325MG 1 TAB TABLET PO PRN (05:29)
[2020-01-19 05:54] LABS: BASO % 0 % (0-3); EOS % 0 % (0-3); HEMATOCRIT 36.7 % (39.0-53.0); HEMOGLOBIN 12.6 g/dL (13.0-17.5); LYMPH # 1.3 x10^3/uL (1.0-4.8); LYMPH % 9 % (24-48); MEAN CORPUSCULAR HEMOGLOBIN 31 pg (25-35); MEAN CORPUSCULAR HGB CONC 34 g/dL (31-37); MEAN CORPUSCULAR VOLUME 91 fL (79-100); MONO # 0.8 x10^3/uL (0.0-1.1); MONO % 6 % (0-9); NEUT # 11.8 x10^3/uL (1.8-7.7); NEUT % 85 % (31-73); PLATELET COUNT 248 x10^3/uL (140-400); RED BLOOD COUNT 4.06 x10^6/uL (4.30-5.70); WHITE BLOOD COUNT 13.9 x10^3/uL (4.0-11.0)
[2020-01-19 06:21] LABS: ALBUMIN 2.6 g/dL (3.4-5.0); CALCIUM 8.4 mg/dL (8.5-10.1); CREATININE 0.9 mg/dL (0.7-1.3); DIRECT BILIRUBIN 0.2 mg/dL (0.0-0.2); POTASSIUM 4.3 mmol/L (3.5-5.1); TOTAL BILIRUBIN 0.5 mg/dL (0.2-1.0); TOTAL PROTEIN 6.6 g/dL (6.4-8.2)
[2020-01-19 07:00] VITALS: BP 147/75
[2020-01-19] MEDS: IV RINGERS,LACTATED 1000ML 1,000 ML IV SCH (07:19)
[2020-01-19] MEDS ORDERED: oxyCODONE/APAP 10/325 1 TAB TABLET PO ONE (08:45)
[2020-01-19] MEDS: DOCUSATE SODIUM 100 MG CAPSULE. PO SCH (08:56)
--- NOTE | 2020-01-19 09:24 | PDOC ---
SURGICAL PROGRESS NOTE Subjective burning at drain site not holding suction tolerating diet Vital Signs Vital Signs Date Time Temp Pulse Resp B/P (MAP) Pulse Ox O2 Delivery O2 Flow Rate FiO2 01/19/20 08:56 Room Air 01/19/20 07:00 97.9 54 18 147/75 (99) 90 97.9 01/19/20 02:25 2.0 I&O Intake and Output 01/19/20 07:00 Intake Total 2450 ml Output Total 1370 ml Balance 1080 ml Intake Oral 300 ml IV Total 2150 ml Output Urine Total 1250 ml Drainage Total 20 ml Estimated Blood Loss 100 ml General: Alert, Oriented X3, Cooperative Abdomen: Soft, Other (ene bloody drainage ) Labs Laboratory Tests Test 01/17/20 22:17 01/18/20 09:55 01/19/20 04:52 Coronavirus (PCR) Not detected (Not Detected) SARS-CoV-2 Antigen (Rapid) Negative (NEGATIVE) White Blood Count 12.1 x10^3/uL (4.0-11.0) 13.9 x10^3/uL (4.0-11.0) Red Blood Count 4.29 x10^6/uL (4.30-5.70) 4.06 x10^6/uL (4.30-5.70) Hemoglobin 13.6 g/dL (13.0-17.5) 12.6 g/dL (13.0-17.5) Hematocrit 38.9 % (39.0-53.0) 36.7 % (39.0-53.0) Mean Corpuscular Volume 91 fL (79-100) 91 fL (79-100) Mean Corpuscular Hemoglobin 32 pg (25-35) 31 pg (25-35) Mean Corpuscular Hemoglobin Concent 35 g/dL (31-37) 34 g/dL (31-37) Red Cell Distribution Width 14.1 % (11.5-14.5) 14.0 % (11.5-14.5) Platelet Count 244 x10^3/uL (140-400) 248 x10^3/uL (140-400) Neutrophils (%) (Auto) 75 % (31-73) 85 % (31-73) Lymphocytes (%) (Auto) 14 % (24-48) 9 % (24-48) Monocytes (%) (Auto) 10 % (0-9) 6 % (0-9) Eosinophils (%) (Auto) 2 % (0-3) 0 % (0-3) Basophils (%) (Auto) 0 % (0-3) 0 % (0-3) Neutrophils # (Auto) 9.0 x10^3/uL (1.8-7.7) 11.8 x10^3/uL (1.8-7.7) Lymphocytes # (Auto) 1.7 x10^3/uL (1.0-4.8) 1.3 x10^3/uL (1.0-4.8) Monocytes # (Auto) 1.2 x10^3/uL (0.0-1.1) 0.8 x10^3/uL (0.0-1.1) Eosinophils # (Auto) 0.2 x10^3/uL (0.0-0.7) 0.0 x10^3/uL (0.0-0.7) Basophils # (Auto) 0.0 x10^3/uL (0.0-0.2) 0.0 x10^3/uL (0.0-0.2) Sodium Level 135 mmol/L (136-145) 134 mmol/L (136-145) Potassium Level 4.3 mmol/L (3.5-5.1) 4.3 mmol/L (3.5-5.1) Chloride Level 101 mmol/L (98-107) 99 mmol/L (98-107) Carbon Dioxide Level 28 mmol/L (21-32) 26 mmol/L (21-32) Anion Gap 6 (6-14) 9 (6-14) Blood Urea Nitrogen 7 mg/dL (8-26) 7 mg/dL (8-26) Creatinine 1.0 mg/dL (0.7-1.3) 0.9 mg/dL (0.7-1.3) Estimated GFR (Cockcroft-Gault) 77.0 87.0 BUN/Creatinine Ratio 7 (6-20) Glucose Level 93 mg/dL (70-99) 107 mg/dL (70-99) Calcium Level 8.0 mg/dL (8.5-10.1) 8.4 mg/dL (8.5-10.1) Total Bilirubin 0.7 mg/dL (0.2-1.0) 0.5 mg/dL (0.2-1.0) Aspartate Amino Transf (AST/SGOT) 14 U/L (15-37) 33 U/L (15-37) Alanine Aminotransferase (ALT/SGPT) 19 U/L (16-63) 48 U/L (16-63) Alkaline Phosphatase 97 U/L (46-116) 92 U/L (46-116) Total Protein 6.8 g/dL (6.4-8.2) 6.6 g/dL (6.4-8.2) Albumin 2.7 g/dL (3.4-5.0) 2.6 g/dL (3.4-5.0) Albumin/Globulin Ratio 0.7 (1.0-1.7) Direct Bilirubin 0.2 mg/dL (0.0-0.2) Laboratory Tests Test 01/18/20 09:55 01/19/20 04:52 White Blood Count 12.1 x10^3/uL (4.0-11.0) 13.9 x10^3/uL (4.0-11.0) Red Blood Count 4.29 x10^6/uL (4.30-5.70) 4.06 x10^6/uL (4.30-5.70) Hemoglobin 13.6 g/dL (13.0-17.5) 12.6 g/dL (13.0-17.5) Hematocrit 38.9 % (39.0-53.0) 36.7 % (39.0-53.0) Mean Corpuscular Volume 91 fL (79-100) 91 fL (79-100) Mean Corpuscular Hemoglobin 32 pg (25-35) 31 pg (25-35) Mean Corpuscular Hemoglobin Concent 35 g/dL (31-37) 34 g/dL (31-37) Red Cell Distribution Width 14.1 % (11.5-14.5) 14.0 % (11.5-14.5) Platelet Count 244 x10^3/uL (140-400) 248 x10^3/uL (140-400) Neutrophils (%) (Auto) 75 % (31-73) 85 % (31-73) Lymphocytes (%) (Auto) 14 % (24-48) 9 % (24-48) Monocytes (%) (Auto) 10 % (0-9) 6 % (0-9) Eosinophils (%) (Auto) 2 % (0-3) 0 % (0-3) Basophils (%) (Auto) 0 % (0-3) 0 % (0-3) Neutrophils # (Auto) 9.0 x10^3/uL (1.8-7.7) 11.8 x10^3/uL (1.8-7.7) Lymphocytes # (Auto) 1.7 x10^3/uL (1.0-4.8) 1.3 x10^3/uL (1.0-4.8) Monocytes # (Auto) 1.2 x10^3/uL (0.0-1.1) 0.8 x10^3/uL (0.0-1.1) Eosinophils # (Auto) 0.2 x10^3/uL (0.0-0.7) 0.0 x10^3/uL (0.0-0.7) Basophils # (Auto) 0.0 x10^3/uL (0.0-0.2) 0.0 x10^3/uL (0.0-0.2) Sodium Level 135 mmol/L (136-145) 134 mmol/L (136-145) Potassium Level 4.3 mmol/L (3.5-5.1) 4.3 mmol/L (3.5-5.1) Chloride Level 101 mmol/L (98-107) 99 mmol/L (98-107) Carbon Dioxide Level 28 mmol/L (21-32) 26 mmol/L (21-32) Anion Gap 6 (6-14) 9 (6-14) Blood Urea Nitrogen 7 mg/dL (8-26) 7 mg/dL (8-26) Creatinine 1.0 mg/dL (0.7-1.3) 0.9 mg/dL (0.7-1.3) Estimated GFR (Cockcroft-Gault) 77.0 87.0 BUN/Creatinine Ratio 7 (6-20) Glucose Level 93 mg/dL (70-99) 107 mg/dL (70-99) Calcium Level 8.0 mg/dL (8.5-10.1) 8.4 mg/dL (8.5-10.1) Total Bilirubin 0.7 mg/dL (0.2-1.0) 0.5 mg/dL (0.2-1.0) Aspartate Amino Transf (AST/SGOT) 14 U/L (15-37) 33 U/L (15-37) Alanine Aminotransferase (ALT/SGPT) 19 U/L (16-63) 48 U/L (16-63) Alkaline Phosphatase 97 U/L (46-116) 92 U/L (46-116) Total Protein 6.8 g/dL (6.4-8.2) 6.6 g/dL (6.4-8.2) Albumin 2.7 g/dL (3.4-5.0) 2.6 g/dL (3.4-5.0) Albumin/Globulin Ratio 0.7 (1.0-1.7) Direct Bilirubin 0.2 mg/dL (0.0-0.2) Assessment/Plan s/p jaimie add augmentin have RN place new bulb to drain Justicifation of Admission Dx: Justifications for Admission: Justification of Admission Dx: Yes (Acute cholecystitis) NATHANIEL LAWLER DIET[employer]ICS TEACHER Jan 19, 2020 09:24
[2020-01-19] MEDS ORDERED: AMOXICILLIN/K CLAV 875/125MG TABLET. PO SCH (10:00)
[2020-01-19] MEDS ORDERED: oxyCODONE/APAP 10/325 1 TAB TABLET PO PRN (10:15)
[2020-01-19] MEDS ORDERED: POLYETHYLENE GLYCOL 3350 17 GM PACKET. PO ONE (10:15)
[2020-01-19] MEDS: NICOTINE 21MG PATCH. TD PRN (10:51)
[2020-01-19 11:00] VITALS: BP 126/66
--- NOTE | 2020-01-19 11:10 | NUR ---
SW following. Discussed with RN, RN advised no SW needs, anticipates discharge home tomorrow, per surgery. SW will continue to follow for any discharge planning needs.
--- NOTE | 2020-01-19 13:02 | PDOC ---
PROGRESS NOTES Chief Complaint Chief Complaint acute cholecystitis calculous cholecystitis stable COPD History of Present Illness History of Present Illness to OR yesterday abx started, white count drain not functinoing well pain at drain site, his abd seems a little bloated Vitals Vitals Vital Signs Date Time Temp Pulse Resp B/P (MAP) Pulse Ox O2 Delivery O2 Flow Rate FiO2 01/19/20 11:00 98.1 64 18 126/66 (86) 92 Room Air 98.1 01/19/20 02:25 2.0 Physical Exam General: Alert, Oriented X3, Cooperative Abdomen: Soft (painful, with movement or palpation), Other (ene bloody drainage ) Extremities: No clubbing, No cyanosis Skin: No rashes, No breakdown Labs LABS Laboratory Tests Test 01/19/20 04:52 White Blood Count 13.9 x10^3/uL (4.0-11.0) Red Blood Count 4.06 x10^6/uL (4.30-5.70) Hemoglobin 12.6 g/dL (13.0-17.5) Hematocrit 36.7 % (39.0-53.0) Mean Corpuscular Volume 91 fL (79-100) Mean Corpuscular Hemoglobin 31 pg (25-35) Mean Corpuscular Hemoglobin Concent 34 g/dL (31-37) Red Cell Distribution Width 14.0 % (11.5-14.5) Platelet Count 248 x10^3/uL (140-400) Neutrophils (%) (Auto) 85 % (31-73) Lymphocytes (%) (Auto) 9 % (24-48) Monocytes (%) (Auto) 6 % (0-9) Eosinophils (%) (Auto) 0 % (0-3) Basophils (%) (Auto) 0 % (0-3) Neutrophils # (Auto) 11.8 x10^3/uL (1.8-7.7) Lymphocytes # (Auto) 1.3 x10^3/uL (1.0-4.8) Monocytes # (Auto) 0.8 x10^3/uL (0.0-1.1) Eosinophils # (Auto) 0.0 x10^3/uL (0.0-0.7) Basophils # (Auto) 0.0 x10^3/uL (0.0-0.2) Sodium Level 134 mmol/L (136-145) Potassium Level 4.3 mmol/L (3.5-5.1) Chloride Level 99 mmol/L (98-107) Carbon Dioxide Level 26 mmol/L (21-32) Anion Gap 9 (6-14) Blood Urea Nitrogen 7 mg/dL (8-26) Creatinine 0.9 mg/dL (0.7-1.3) Estimated GFR (Cockcroft-Gault) 87.0 Glucose Level 107 mg/dL (70-99) Calcium Level 8.4 mg/dL (8.5-10.1) Total Bilirubin 0.5 mg/dL (0.2-1.0) Direct Bilirubin 0.2 mg/dL (0.0-0.2) Aspartate Amino Transf (AST/SGOT) 33 U/L (15-37) Alanine Aminotransferase (ALT/SGPT) 48 U/L (16-63) Alkaline Phosphatase 92 U/L (46-116) Total Protein 6.6 g/dL (6.4-8.2) Albumin 2.6 g/dL (3.4-5.0) Comment Review of Relevant I have reviewed the following items fannie (where applicable) has been applied. Labs Laboratory Tests Test 01/17/20 22:17 01/18/20 09:55 01/19/20 04:52 Coronavirus (PCR) Not detected (Not Detected) SARS-CoV-2 Antigen (Rapid) Negative (NEGATIVE) White Blood Count 12.1 x10^3/uL (4.0-11.0) 13.9 x10^3/uL (4.0-11.0) Red Blood Count 4.29 x10^6/uL (4.30-5.70) 4.06 x10^6/uL (4.30-5.70) Hemoglobin 13.6 g/dL (13.0-17.5) 12.6 g/dL (13.0-17.5) Hematocrit 38.9 % (39.0-53.0) 36.7 % (39.0-53.0) Mean Corpuscular Volume 91 fL (79-100) 91 fL (79-100) Mean Corpuscular Hemoglobin 32 pg (25-35) 31 pg (25-35) Mean Corpuscular Hemoglobin Concent 35 g/dL (31-37) 34 g/dL (31-37) Red Cell Distribution Width 14.1 % (11.5-14.5) 14.0 % (11.5-14.5) Platelet Count 244 x10^3/uL (140-400) 248 x10^3/uL (140-400) Neutrophils (%) (Auto) 75 % (31-73) 85 % (31-73) Lymphocytes (%) (Auto) 14 % (24-48) 9 % (24-48) Monocytes (%) (Auto) 10 % (0-9) 6 % (0-9) Eosinophils (%) (Auto) 2 % (0-3) 0 % (0-3) Basophils (%) (Auto) 0 % (0-3) 0 % (0-3) Neutrophils # (Auto) 9.0 x10^3/uL (1.8-7.7) 11.8 x10^3/uL (1.8-7.7) Lymphocytes # (Auto) 1.7 x10^3/uL (1.0-4.8) 1.3 x10^3/uL (1.0-4.8) Monocytes # (Auto) 1.2 x10^3/uL (0.0-1.1) 0.8 x10^3/uL (0.0-1.1) Eosinophils # (Auto) 0.2 x10^3/uL (0.0-0.7) 0.0 x10^3/uL (0.0-0.7) Basophils # (Auto) 0.0 x10^3/uL (0.0-0.2) 0.0 x10^3/uL (0.0-0.2) Sodium Level 135 mmol/L (136-145) 134 mmol/L (136-145) Potassium Level 4.3 mmol/L (3.5-5.1) 4.3 mmol/L (3.5-5.1) Chloride Level 101 mmol/L (98-107) 99 mmol/L (98-107) Carbon Dioxide Level 28 mmol/L (21-32) 26 mmol/L (21-32) Anion Gap 6 (6-14) 9 (6-14) Blood Urea Nitrogen 7 mg/dL (8-26) 7 mg/dL (8-26) Creatinine 1.0 mg/dL (0.7-1.3) 0.9 mg/dL (0.7-1.3) Estimated GFR (Cockcroft-Gault) 77.0 87.0 BUN/Creatinine Ratio 7 (6-20) Glucose Level 93 mg/dL (70-99) 107 mg/dL (70-99) Calcium Level 8.0 mg/dL (8.5-10.1) 8.4 mg/dL (8.5-10.1) Total Bilirubin 0.7 mg/dL (0.2-1.0) 0.5 mg/dL (0.2-1.0) Aspartate Amino Transf (AST/SGOT) 14 U/L (15-37) 33 U/L (15-37) Alanine Aminotransferase (ALT/SGPT) 19 U/L (16-63) 48 U/L (16-63) Alkaline Phosphatase 97 U/L (46-116) 92 U/L (46-116) Total Protein 6.8 g/dL (6.4-8.2) 6.6 g/dL (6.4-8.2) Albumin 2.7 g/dL (3.4-5.0) 2.6 g/dL (3.4-5.0) Albumin/Globulin Ratio 0.7 (1.0-1.7) Direct Bilirubin 0.2 mg/dL (0.0-0.2) Laboratory Tests Test 01/19/20 04:52 White Blood Count 13.9 x10^3/uL (4.0-11.0) Red Blood Count 4.06 x10^6/uL (4.30-5.70) Hemoglobin 12.6 g/dL (13.0-17.5) Hematocrit 36.7 % (39.0-53.0) Mean Corpuscular Volume 91 fL (79-100) Mean Corpuscular Hemoglobin 31 pg (25-35) Mean Corpuscular Hemoglobin Concent 34 g/dL (31-37) Red Cell Distribution Width 14.0 % (11.5-14.5) Platelet Count 248 x10^3/uL (140-400) Neutrophils (%) (Auto) 85 % (31-73) Lymphocytes (%) (Auto) 9 % (24-48) Monocytes (%) (Auto) 6 % (0-9) Eosinophils (%) (Auto) 0 % (0-3) Basophils (%) (Auto) 0 % (0-3) Neutrophils # (Auto) 11.8 x10^3/uL (1.8-7.7) Lymphocytes # (Auto) 1.3 x10^3/uL (1.0-4.8) Monocytes # (Auto) 0.8 x10^3/uL (0.0-1.1) Eosinophils # (Auto) 0.0 x10^3/uL (0.0-0.7) Basophils # (Auto) 0.0 x10^3/uL (0.0-0.2) Sodium Level 134 mmol/L (136-145) Potassium Level 4.3 mmol/L (3.5-5.1) Chloride Level 99 mmol/L (98-107) Carbon Dioxide Level 26 mmol/L (21-32) Anion Gap 9 (6-14) Blood Urea Nitrogen 7 mg/dL (8-26) Creatinine 0.9 mg/dL (0.7-1.3) Estimated GFR (Cockcroft-Gault) 87.0 Glucose Level 107 mg/dL (70-99) Calcium Level 8.4 mg/dL (8.5-10.1) Total Bilirubin 0.5 mg/dL (0.2-1.0) Direct Bilirubin 0.2 mg/dL (0.0-0.2) Aspartate Amino Transf (AST/SGOT) 33 U/L (15-37) Alanine Aminotransferase (ALT/SGPT) 48 U/L (16-63) Alkaline Phosphatase 92 U/L (46-116) Total Protein 6.6 g/dL (6.4-8.2) Albumin 2.6 g/dL (3.4-5.0) Medications Current Medications Hydromorphone HCl (Dilaudid) 0.2 mg PRN Q2HRS PRN IVP PAIN Last administered on 01/19/20at 01:55; Start 01/17/20 at 19:00; Stop 01/19/20 at 08:44; Status DC Sodium Chloride 1,000 ml @ 100 mls/hr Q10H IV Last administered on 01/18/20at 06:47; Start 01/17/20 at 19:30 Cefazolin Sodium/ Dextrose 50 ml @ 100 mls/hr 1X PREOP PRN IV PRIOR TO PROCEDURE; Start 01/18/20 at 12:00; Stop 01/18/20 at 16:53; Status DC Ondansetron HCl (Zofran) 4 mg PRN Q6HRS PRN IV NAUSEA/VOMITING; Start 01/18/20 at 08:15; Stop 01/18/20 at 16:53; Status DC Fentanyl Citrate (Fentanyl 2ml Vial) 25 mcg PRN Q5MIN PRN IV MILD PAIN 1-3; Start 01/18/20 at 08:15; Stop 01/18/20 at 16:54; Status DC Fentanyl Citrate (Fentanyl 2ml Vial) 50 mcg PRN Q5MIN PRN IV MODERATE TO SEVERE PAIN Last administered on 01/18/20at 14:40; Start 01/18/20 at 08:15; Stop 01/18/20 at 16:54; Status DC Morphine Sulfate (Morphine Sulfate) 1 mg PRN Q10MIN PRN IV SEVERE PAIN 7-10; Start 01/18/20 at 08:15; Stop 01/18/20 at 16:54; Status DC Ringer's Solution 1,000 ml @ 30 mls/hr Q24H IV Last administered on 01/18/20at 13:51; Start 01/18/20 at 08:03; Stop 01/18/20 at 20:02; Status DC Lidocaine HCl (Xylocaine-Mpf 1% 2ml Vial) 2 ml PRN 1X PRN ID PRIOR TO IV START; Start 01/18/20 at 08:15; Stop 01/18/20 at 16:54; Status DC Hydromorphone HCl (Dilaudid) 0.5 mg PRN Q10MIN PRN IV SEV PAIN, Second choice; Start 01/18/20 at 08:15; Stop 01/18/20 at 16:54; Status DC Prochlorperazine Edisylate (Compazine) 5 mg PACU PRN PRN IV NAUSEA, MRX1; Start 01/18/20 at 08:15; Stop 01/18/20 at 16:54; Status DC Nicotine (Nicoderm Cq 21mg) 1 patch PRN DAILY PRN TD SMOKING CESSATION Last administered on 01/19/20at 10:51; Start 01/18/20 at 09:30 Sevoflurane (Ultane) 60 ml STK-MED ONCE IH ; Start 01/18/20 at 11:39; Stop 01/18/20 at 11:39; Status DC Rocuronium Riley (Zemuron) 50 mg STK-MED ONCE .ROUTE ; Start 01/18/20 at 11:39; Stop 01/18/20 at 11:39; Status DC Fentanyl Citrate (Fentanyl 2ml Vial) 100 mcg STK-MED ONCE .ROUTE ; Start 01/18/20 at 11:39; Stop 01/18/20 at 11:39; Status DC Neostigmine Riley (Neostigmine Methylsulfate) 5 mg STK-MED ONCE .ROUTE ; Start 01/18/20 at 11:39; Stop 01/18/20 at 11:39; Status DC Midazolam HCl (Versed) 2 mg STK-MED ONCE .ROUTE ; Start 01/18/20 at 11:39; Stop 01/18/20 at 11:40; Status DC Glycopyrrolate (Robinul) 1 mg STK-MED ONCE .ROUTE ; Start 01/18/20 at 11:39; Stop 01/18/20 at 11:40; Status DC Propofol (Diprivan) 200 mg STK-MED ONCE IV ; Start 01/18/20 at 11:40; Stop 01/18/20 at 11:40; Status DC Propofol (Diprivan) 200 mg STK-MED ONCE IV ; Start 01/18/20 at 11:40; Stop 01/18/20 at 11:40; Status DC Ondansetron HCl (Zofran) 4 mg STK-MED ONCE .ROUTE ; Start 01/18/20 at 11:40; Stop 01/18/20 at 11:40; Status DC Dexamethasone Sodium Phosphate (Decadron) 4 mg STK-MED ONCE .ROUTE ; Start 01/18/20 at 11:40; Stop 01/18/20 at 11:40; Status DC Ketorolac Tromethamine (Toradol 30mg Vial) 30 mg STK-MED ONCE .ROUTE ; Start 01/18/20 at 11:40; Stop 01/18/20 at 11:40; Status DC Lidocaine HCl (Lidocaine Pf 2% Vial) 5 ml STK-MED ONCE .ROUTE ; Start 01/18/20 at 11:40; Stop 01/18/20 at 11:40; Status DC Bupivacaine HCl/ Epinephrine Bitart (Sensorcain-Epi 0.5%-1:348382 Mpf) 30 ml STK-MED ONCE .ROUTE Last administered on 01/18/20at 13:15; Start 01/18/20 at 11:42; Stop 01/18/20 at 11:42; Status DC Heparin Sodium (Porcine) (Heparin Sodium) 10,000 unit STK-MED ONCE .ROUTE Last administered on 01/18/20at 13:12; Start 01/18/20 at 11:42; Stop 01/18/20 at 11:42; Status DC Iohexol (Omnipaque 300 Mg/ml) 50 ml STK-MED ONCE .ROUTE Last administered on 01/18/20at 13:15; Start 01/18/20 at 11:42; Stop 01/18/20 at 11:42; Status DC Cellulose (Surgicel Hemostat 4x8) 1 each STK-MED ONCE .ROUTE Last administered on 01/18/20at 13:28; Start 01/18/20 at 11:42; Stop 01/18/20 at 11:42; Status DC Bisacodyl (Dulcolax Supp) 10 mg STK-MED ONCE .ROUTE ; Start 01/18/20 at 11:42; Stop 01/18/20 at 11:43; Status DC Albuterol Sulfate (Ventolin Neb Soln) 2.5 mg PRN Q30MIN PRN NEB COUGH Last administered on 01/18/20at 12:11; Start 01/18/20 at 12:15 Phenylephrine HCl (PHENYLEPHRINE in 0.9% NACL PF) 1 mg STK-MED ONCE IV ; Start 01/18/20 at 12:35; Stop 01/18/20 at 12:35; Status DC Glucagon (Glucagen) 1 mg STK-MED ONCE .ROUTE ; Start 01/18/20 at 13:00; Stop 01/18/20 at 13:00; Status DC Rocuronium Riley (Zemuron) 50 mg STK-MED ONCE .ROUTE ; Start 01/18/20 at 13:12; Stop 01/18/20 at 13:13; Status DC Fentanyl Citrate (Fentanyl 2ml Vial) 100 mcg STK-MED ONCE .ROUTE ; Start 01/18/20 at 13:46; Stop 01/18/20 at 13:46; Status DC Sodium Chloride (Normal Saline Flush) 3 ml QSHIFT PRN IV AFTER MEDS AND BLOOD DRAWS; Start 01/18/20 at 14:00 Ringer's Solution 1,000 ml @ 100 mls/hr Q10H IV Last administered on 01/18/20at 22:31; Start 01/18/20 at 13:49 Dextrose (Dextrose 50%-Water Syringe) 12.5 gm PRN Q15MIN PRN IV SEE COMMENTS; Start 01/18/20 at 14:00 Acetaminophen/ Hydrocodone Bitart (Lortab 5/325) 1 tab PRN Q4HRS PRN PO MILD PAIN 1-3 Last administered on 01/19/20at 05:29; Start 01/18/20 at 14:00; Stop 01/19/20 at 10:06; Status DC Naloxone HCl (Narcan) 0.4 mg PRN Q2MIN PRN IV SEE INSTRUCTIONS; Start 01/18/20 at 14:00 Sodium Chloride 1,000 ml @ 25 mls/hr Q24H IV ; Start 01/18/20 at 13:49; Stop 01/18/20 at 16:54; Status DC Morphine Sulfate (Morphine Sulfate) 1 mg PRN Q1HR PRN IV PAIN; Start 01/18/20 at 14:00 Docusate Sodium (Colace) 100 mg BID PO Last administered on 01/19/20at 08:56; Start 01/18/20 at 21:00 Fentanyl Citrate (Fentanyl 2ml Vial) 100 mcg STK-MED ONCE .ROUTE ; Start 01/18/20 at 14:11; Stop 01/18/20 at 14:11; Status DC Oxycodone/ Acetaminophen (Percocet 10/325) 1 tab 1X ONCE PO Last administered on 01/19/20at 08:56; Start 01/19/20 at 08:45; Stop 01/19/20 at 08:50; Status DC Amoxicillin/ Clavulanate Potassium (Augmentin 875/ 125mg) 1 tab BID PO Last administered on 01/19/20at 10:51; Start 01/19/20 at 10:00 Oxycodone/ Acetaminophen (Percocet 10/325) 1 tab PRN Q4HRS PRN PO MODERATE TO SEVERE PAIN; Start 01/19/20 at 10:15 Polyethylene Glycol (miraLAX PACKET) 17 gm 1X ONCE PO Last administered on 01/19/20at 10:51; Start 01/19/20 at 10:15; Stop 01/19/20 at 10:16; Status DC Polyethylene Glycol (miraLAX PACKET) 17 gm DAILY PO ; Start 01/20/20 at 09:00 Cefazolin Sodium/ Dextrose (Ancef 2gm Premix) 2 gm STK-MED ONCE IV ; Start 01/18/20 at 11:00; Stop 01/19/20 at 12:19; Status DC Active Scripts Active Reported Trelegy Ellipta 100-62.5-25 (Fluticasone/Umeclidin/Vilanter) 1 Each Blst.w.dev 1 Each IH DAILY Ibuprofen 800 Mg Tablet 800 Mg PO BID PRN Magnesium Citrate 296 Ml Solution 75 Ml PO HS Nexium Capsule (Esomeprazole Magnesium) 20 Mg Capsule.dr 1 Cap PO DAILY Proair Hfa Inhaler (Albuterol Sulfate) 8.5 Gm Hfa.aer.ad 2 Puff IH PRN Q4-6HRS PRN 21 Days Vitals/I & O Vital Sign - Last 24 Hours 01/18/20 01/18/20 01/18/20 01/18/20 13:57 13:57 14:12 14:16 Temp 97.6 97.6 Pulse 71 92 Resp 20 20 20 B/P (MAP) 138/76 136/78 Pulse Ox 98 91 98 O2 Delivery Mask Simple Mask Simple Mask Simple Mask O2 Flow Rate 10 10 10 10.0 01/18/20 01/18/20 01/18/20 01/18/20 14:27 14:40 14:42 14:50 Pulse 87 67 Resp 20 20 20 B/P (MAP) 142/74 140/68 Pulse Ox 93 93 99 O2 Delivery Room Air Room Air Nasal Cannula O2 Flow Rate 2 01/18/20 01/18/20 01/18/20 01/18/20 15:15 15:30 15:45 15:47 Temp 98.0 98.0 Pulse 83 75 70 Resp 18 18 18 B/P (MAP) 132/77 (95) 135/81 (99) 143/81 (101) Pulse Ox 94 94 93 O2 Delivery Nasal Cannula Nasal Cannula Nasal Cannula Nasal Cannula O2 Flow Rate 2.0 2.0 2.0 2.0 01/18/20 01/18/20 01/18/20 01/18/20 15:59 16:00 16:17 16:30 Pulse 68 98 Resp 18 18 B/P (MAP) 138/79 (98) 134/69 (90) Pulse Ox 94 95 92 O2 Delivery Nasal Cannula Nasal Cannula Nasal Cannula Room Air O2 Flow Rate 2.0 2.0 01/18/20 01/18/20 01/18/20 01/18/20 17:00 19:00 19:06 20:00 Temp 97.8 97.8 Pulse 78 74 Resp 18 20 20 B/P (MAP) 142/64 (90) 132/76 (94) Pulse Ox 93 95 93 O2 Delivery Room Air Room Air Nasal Cannula Room Air 01/18/20 01/18/20 01/18/20 01/18/20 20:06 22:29 22:59 23:04 Temp 98.1 98.1 Pulse 72 Resp 20 20 20 20 B/P (MAP) 136/71 (92) Pulse Ox 91 93 91 91 O2 Delivery Room Air Nasal Cannula Room Air Room Air 01/19/20 01/19/20 01/19/20 01/19/20 01:55 02:25 03:04 05:29 Temp 98.0 98.0 Pulse 65 Resp 20 20 20 20 B/P (MAP) 146/78 (100) Pulse Ox 91 94 94 94 O2 Delivery Room Air Room Air Room Air Room Air O2 Flow Rate 2.0 01/19/20 01/19/20 01/19/20 01/19/20 06:29 07:00 08:56 09:56 Temp 97.9 97.9 Pulse 54 Resp 20 18 B/P (MAP) 147/75 (99) Pulse Ox 94 90 O2 Delivery Room Air Room Air Room Air Room Air 01/19/20 11:00 Temp 98.1 98.1 Pulse 64 Resp 18 B/P (MAP) 126/66 (86) Pulse Ox 92 O2 Delivery Room Air Intake and Output 01/18/20 01/18/20 01/19/20 15:00 23:00 07:00 Intake Total 2150 ml 300 ml Output Total 370 ml 600 ml 400 ml Balance 1780 ml -300 ml -400 ml Justicifation of Admission Dx: Justifications for Admission: Justification of Admission Dx: Yes (Acute cholecystitis) RITA HICKEY MD Jan 19, 2020 13:02
--- NOTE | 2020-01-19 14:50 | NUR ---
Patient verbalized that he wanted to get discharged today. Patient stated there was no need for him to be in the hospital. Patient asked freelance writer to tell the doctor he wanted to be discharged ABIGAIL. Dr. Angulo and THEO paged. Both agreeable for discharge. Orders received.
[2020-01-19 15:00] VITALS: BP 138/85
[2020-01-20] MEDS ORDERED: POLYETHYLENE GLYCOL 3350 17 GM PACKET. PO SCH (09:00)
--- NOTE | 2020-01-20 17:07 | PATHOLOGY ---
[facility] Accession Number: [id number] . 01 Material submitted: . gallbladder - GALLBLADDER AND CONTENTS . 01 Clinical history: . Cholecystitis . 02 Diagnosis: Gallbladder, laparoscopic cholecystectomy: - Cholelithiasis. - Acute necrotizing (gangrenous) and chronic cholecystitis ([facility] 01/20/2020) [facility] 01/20/2020 1232 Local . 02 Comment: There is no evidence of malignancy. ([facility] 01/20/2020) . 02 Electronically signed: . Neel Haynes MD, Pathologist NPI- [id number] . 01 Gross description: . The specimen is received in formalin labeled "Tamm[place], [place], gallbladder and contents" and consists of a disrupted fatty oglesby-juárez gallbladder measuring 10.3 x 4.2 x 2.6 cm. The margin is inked black. Opening reveals a lumen filled with green bile and multiple fragmented to multifaceted brown calculi measuring up to 2.3 cm. The mucosa is green and smooth to roughened with focal erosion and an average wall thickness of 0.1 cm. No masses are identified. Night Assistant sections are submitted in A1-A2. (SD; 01/19/2020) SYU/SYU 01/19/2020 1405 Local . 02 Pathologist provided ICD-10: K80.12 . 02 CPT . 067330 Specimen Comment: A courtesy copy of this report has been sent to [phone] Specimen Comment: [id number], Specimen Comment: Report sent to ,DR WORTHY / DR PRESLEY Performed at: [address] [place] [id number] MD Te Shah MD Phone: [phone] Performed at: [address] [id number] MD Neel Haynes MD Phone: [phone]
== END 2020-01-19 17:25 | disposition home or self-care (01) | DRG 417 ==
LOC: 4 NORTH 17:40
PROVIDERS: ADMIT Internal Medicine; ATTEND Internal Medicine
PROC: BF101ZZ Fluoroscopy of Bile Ducts using Low Osmolar Contrast (ICD-10-PCS; 2020-01-18)
PROC: 0FT44ZZ Resection of Gallbladder, Percutaneous Endoscopic Approach (ICD-10-PCS; principal; 2020-01-18 12:00)
DX: K80.62 Calculus of gallbladder and bile duct with acute cholecystitis without obstruction (principal); E43 Unspecified severe protein-calorie malnutrition; F17.210 Nicotine dependence, cigarettes, uncomplicated; J44.9 Chronic obstructive pulmonary disease, unspecified; Z20.828 Contact with and (suspected) exposure to other viral communicable diseases; K82.A1 Gangrene of gallbladder in cholecystitis; Z68.28 Body mass index [BMI] 28.0-28.9, adult
CPT/HCPCS: 36415; 74300; 76700; 80048; 80053; 80076; 85025; 87426; 88304; 94760; 99406; A7015; C1757; J0690; J1100; J1170; J1610; J1644; J1885; J2250; J2370; J2405; J2704; J2710; J3010; J3490; J7030; J7120; Q9967; G0378; J7613; U0003-CS

== ENCOUNTER 2020-08-12 07:33 | Inpatient (IN) | payer OTHER ==
[2020-08-12] VITALS (10 sets, daily range): BP systolic 115–155; BP diastolic 63–81
[~2020-08-12] VITALS: Ht 185.4 cm; Wt 122.7 kg
[~2020-08-12 07:33] MED LIST: ALBU2.5V8 IH; ESOM20CA PO; FLUT1BLS3 IH; IBUP-1060 PO; MAGN296S68 PO
--- NOTE | 2020-08-12 07:55 | ED.ADGEN ---
Past Medical History Smoking Status: Current Every Day Smoker General Adult EDM: Chief Complaint: MECHANICAL FALL HPI: HPI: Patient is a 60 year old male brought in by EMS for right-sided hip and wrist pain. Patient was taking his laundry to the laundromat in his apartment complex when he fell on the ice. States he was unable to get up was laying on the ground for about 1 hour before somebody found him. Denies any head injury or loss of consciousness. Patient seen slipped and fell onto his right side. Has abrasions on both knees. States he otherwise has been well but has a history of COPD and has his baseline cough related to that, smokes 2 packs of cigarettes daily. Last tetanus 1 year ago. Review of Systems: Review of Systems: All other systems within normal limits except for as noted in the HPI Current Medications: Current Medications Medications (Trade) Dose Ordered Sig/Vineet Start Time Stop Time Status Last Admin Dose Admin Fentanyl Citrate (Fentanyl 2ml Vial) 75 mcg 1X ONCE 08/12/20 08:00 08/12/20 08:01 DC 08/12/20 08:07 75 MCG Allergies: Allergies: Allergies Coded Allergies Type Severity Reaction Last Updated Verified No Known Drug Allergies 01/18/20 No Physical Exam: PE: Constitutional: Well developed, well nourished, no acute distress, non-toxic appearance. [] HENT: Normocephalic, atraumatic, bilateral external ears normal, nose normal. [] Eyes: PERRLA, conjunctiva normal, no discharge. [] Neck: No rigidity, supple, no stridor. [] Cardiovascular: Regular rate and rhythm, brisk cap refill [] Lungs & Thorax: Non labored symmetric respirations, no tachypnea or respiratory distress [] Abdomen: Soft, nondistended. Skin: Warm, dry, no erythema, no rash. Abrasions to bilateral knees, no laceration [] Back: Unremarkable Extremities: No deformities, range of motion grossly intact, no lower extremity edema. Tenderness palpation on right hip, swelling and tenderness of right wrist. [] Neurologic: Alert and oriented X 3, no focal deficits noted. [] Psychologic: Affect normal, judgement normal, mood normal. [] Current Patient Data: Labs: Laboratory Tests Test 08/12/20 08:05 White Blood Count 8.6 x10^3/uL (4.0-11.0) Red Blood Count 4.63 x10^6/uL (4.30-5.70) Hemoglobin 14.6 g/dL (13.0-17.5) Hematocrit 42.5 % (39.0-53.0) Mean Corpuscular Volume 92 fL (79-100) Mean Corpuscular Hemoglobin 31 pg (25-35) Mean Corpuscular Hemoglobin Concent 34 g/dL (31-37) Red Cell Distribution Width 14.0 % (11.5-14.5) Platelet Count 264 x10^3/uL (140-400) Neutrophils (%) (Auto) 88 % (31-73) H Lymphocytes (%) (Auto) 8 % (24-48) L Monocytes (%) (Auto) 3 % (0-9) Eosinophils (%) (Auto) 0 % (0-3) Basophils (%) (Auto) 0 % (0-3) Neutrophils # (Auto) 7.6 x10^3/uL (1.8-7.7) Lymphocytes # (Auto) 0.7 x10^3/uL (1.0-4.8) L Monocytes # (Auto) 0.2 x10^3/uL (0.0-1.1) Eosinophils # (Auto) 0.0 x10^3/uL (0.0-0.7) Basophils # (Auto) 0.0 x10^3/uL (0.0-0.2) Platelet Estimate Pending Laboratory Tests 08/12/20 08:05 Vital Signs: Vital Signs Date Time Temp Pulse Resp B/P (MAP) Pulse Ox O2 Delivery O2 Flow Rate FiO2 08/12/20 07:44 97.0 67 22 165/94 (117) 95 Room Air 97.0 EKG: EKG: Sinus rhythm, heart rate 61 bpm, incomplete right bundle branch block, no ST elevation or depression, no ectopy, intervals. T waves unremarkable [] Heart Score: Risk Factors: Risk Factors: DM, Current or recent (<one month) smoker, HTN, HLP, family history of CAD, obesity. Risk Scores: Score 0 - 3: 2.5% MACE over next 6 weeks - Discharge Home Score 4 - 6: 20.3% MACE over next 6 weeks - Admit for Clinical Observation Score 7 - 10: 72.7% MACE over next 6 weeks - Early Invasive Strategies Radiology/Procedures: Radiology/Procedures: EXAMINATION: XR RT WRIST 3VIEWS, XR CHEST 1V, XR BILATERAL HIP (WITH OR WITHOUT PELVIS) 2 VIEWS_RIGHT CLINICAL HISTORY: Chest pain and right wrist and hip pain following fall COMPARISON: Chest radiograph 04/14/2020 FINDINGS: CHEST: Normal heart size. Aortic atherosclerotic calcification. No evidence of focal airspace consolidation or pleural effusion. Nonspecific mild diffuse interstitial prominence, similar to prior study and likely chronic. Sequelae of old granulomatous disease. No evidence of acute osseous abnormality. RIGHT WRIST: Comminuted distal radial metaphysis fracture with intra-articular extension to the radiocarpal joint. Impaction and apex dorsal angulation at the dominant transverse fracture plane. Small minimally displaced fracture fragment along the ulnar aspect of the distal radius underlying the distal radial ulnar joint. Mildly displaced ulnar styloid fracture. Joint spaces and alignment maintained carpus. Dorsal soft tissue swelling. RIGHT HIP: Displaced right femoral neck fracture with valgus alignment. No additional acute fracture definitively visualized. Left hip joint, pubic symphysis, and bilateral SI joints maintained. Partially visualized lumbar degenerative changes. IMPRESSION: Comminuted distal radial impaction fracture with angulation and displacement as described. Mildly displaced ulnar styloid fracture. Displaced right femoral neck fracture. No evidence of acute cardiopulmonary abnormality. [] Course & Med Decision Making: Course & Med Decision Making Pertinent Labs and Imaging studies reviewed. (See chart for details) Consulted Dr. Howard who will take patient to the OR. Admitted to hospitalist. [] Alexandru Disclaimer: Alexandru Disclaimer: This electronic medical record was generated, in whole or in part, using a voice recognition dictation system. Departure Departure Impression: Primary Impression: Fall due to ice or snow Additional Impressions: Fracture of femoral neck, right, closed Fracture of right distal radius Disposition: ADMITTED INPT THIS HOSP Admitting Physician: HIMS Condition: STABLE Referrals: JULITA PRESLEY MD (PCP) Problem Qualifiers SUSANA MCKEON MD Aug 12, 2020 07:54
[2020-08-12] MEDS ORDERED: fentaNYL PF VIAL 100 MCG/2 ML VIAL IVP ONE (08:00)
[2020-08-12 08:40] LABS: BASO % 0 % (0-3); EOS % 0 % (0-3); HEMATOCRIT 42.5 % (39.0-53.0); HEMOGLOBIN 14.6 g/dL (13.0-17.5); LYMPH # 0.7 x10^3/uL (1.0-4.8); LYMPH % 8 % (24-48); MEAN CORPUSCULAR HEMOGLOBIN 31 pg (25-35); MEAN CORPUSCULAR HGB CONC 34 g/dL (31-37); MEAN CORPUSCULAR VOLUME 92 fL (79-100); MONO # 0.2 x10^3/uL (0.0-1.1); MONO % 3 % (0-9); NEUT # 7.6 x10^3/uL (1.8-7.7); NEUT % 88 % (31-73); PLATELET COUNT 264 x10^3/uL (140-400); RED BLOOD COUNT 4.63 x10^6/uL (4.30-5.70); WHITE BLOOD COUNT 8.6 x10^3/uL (4.0-11.0)
--- NOTE | 2020-08-12 08:42 | RAD ---
EXAMINATION: XR RT WRIST 3VIEWS, XR CHEST 1V, XR BILATERAL HIP (WITH OR WITHOUT PELVIS) 2 VIEWS_RIGHT CLINICAL HISTORY: Chest pain and right wrist and hip pain following fall COMPARISON: Chest radiograph 04/14/2020 FINDINGS: CHEST: Normal heart size. Aortic atherosclerotic calcification. No evidence of focal airspace consolidation or pleural effusion. Nonspecific mild diffuse interstitial prominence, similar to prior study and lik delphine chronic. Sequelae of old granulomatous disease. No evidence of acute osseous abnormality. RIGHT WRIST: Comminuted distal radial metaphysis fracture with intra-articular extension to the radiocarpal joint. Impaction and apex dorsal angulation at the dominant transverse fracture plane. Small minimally disp laced fracture fragment along the ulnar aspect of the distal radius underlying the distal radial ulna r joint. Mildly displaced ulnar styloid fracture. Joint spaces and alignment maintained carpus. Dorsa l soft tissue swelling. RIGHT HIP: Displaced right femoral neck fracture with valgus alignment. No additional acute fracture definitivel y visualized. Left hip joint, pubic symphysis, and bilateral SI joints maintained. Partially visualiz ed lumbar degenerative changes. IMPRESSION: Comminuted distal radial impaction fracture with angulation and displacement as described. Mildly dis placed ulnar styloid fracture. Displaced right femoral neck fracture. No evidence of acute cardiopulmonary abnormality. Electronically signed by: Fabiano Horvath DO (08/12/2020 8:40 AM) KITA
[2020-08-12 08:54] LABS: CALCIUM 8.4 mg/dL (8.5-10.1); CREATININE 0.9 mg/dL (0.7-1.3); GFR 86.7; POTASSIUM 5.1 mmol/L (3.5-5.1)
[2020-08-12] MEDS: IV NORMAL SALINE 1000ML BAG 1,000 ML IV SCH ×2 (09:00→22:20)
[2020-08-12] MEDS ORDERED: MORPHINE SULFATE 4 MG/ML VIAL. IV PRN (09:00)
[2020-08-12] MEDS ORDERED: ONDANSETRON PF 4 MG/2 ML VIAL. IV PRN (09:00)
[2020-08-12] MEDS ORDERED: fentaNYL PF VIAL 100 MCG/2 ML VIAL IV PRN (09:00)
[2020-08-12 09:09] LABS: ALBUMIN 3.3 g/dL (3.4-5.0); ALBUMIN/GLOBULIN RATIO 0.9 (1.0-1.7); TOTAL BILIRUBIN 0.4 mg/dL (0.2-1.0); TOTAL PROTEIN 6.9 g/dL (6.4-8.2)
[2020-08-12] MEDS ORDERED: LIDOCAINE 2% PF 5 ML VIAL. ONE (09:09)
[2020-08-12] MEDS ORDERED: PROPOFOL 10 MG/ML (20ML) VIAL. IV ONE (09:09)
[2020-08-12] MEDS ORDERED: fentaNYL PF VIAL 100 MCG/2 ML VIAL IVP PRN ×2 (09:15→11:00)
[2020-08-12] MEDS ORDERED: IV RINGERS,LACTATED 1000ML 1,000 ML IV SCH (09:15)
[2020-08-12] MEDS ORDERED: PROCHLORPERAZINE 10 MG/2 ML VIAL. IVP PRN (09:15)
[2020-08-12] MEDS ORDERED: MORPHINE SULFATE 2 MG/ML VIAL. IVP PRN (09:15)
[2020-08-12] MEDS ORDERED: ROCURONIUM 50 MG/5 ML VIAL. ONE (09:17)
[2020-08-12] MEDS ORDERED: fentaNYL PF VIAL 250 MCG/5 ML VIAL ONE (10:11)
[2020-08-12 10:13] LABS: % LYMPHS 12 % (24-48); % MONOS 2 % (0-10); % SEGS 86 % (35-66); PLT ESTIMATE ADEQUATE (ADEQUATE)
[2020-08-12] MEDS ORDERED: HYDROCORTISONE SOD SUCC/PF 100 MG/2 ML VIAL. ONE (10:55)
[2020-08-12] MEDS ORDERED: POLYETHYLENE GLYCOL 3350 17 GM PACKET. PO PRN (11:00)
[2020-08-12] MEDS ORDERED: ONDANSETRON PF 4 MG/2 ML VIAL. IVP PRN (11:00)
[2020-08-12] MEDS ORDERED: traMADol 50 MG TABLET PO PRN (11:00)
[2020-08-12] MEDS ORDERED: DEXTROSE 50% 25 GM / 50ML DISP.SYRIN. IV PRN (11:00)
[2020-08-12] MEDS ORDERED: MORPHINE SULFATE 5 MG, KETOROLAC 30MG VIAL 30 MG, ROPIVacaine 0.5% PF 60 ML, EPINEPHrin... INT ART ONE (11:00)
[2020-08-12] MEDS ORDERED: VANCOMYCIN 1 GM VIAL. ONE (12:13)
[2020-08-12] MEDS ORDERED: ROPIVacaine 0.5% PF 20 ML VIAL. ONE (12:41)
[2020-08-12] MEDS ORDERED: HYDROmorphone 2 MG/ML VIAL ONE (12:45)
[2020-08-12] MEDS ORDERED: ONDANSETRON PF 4 MG/2 ML VIAL. ONE (12:58)
[2020-08-12] MEDS ORDERED: DEXAMETHASONE SOD PHOS 4 MG/ML VIAL ONE (12:58)
[2020-08-12] MEDS ORDERED: ePHEDrine PF IN SALINE 50 MG/10 ML SYRINGE. IV ONE (13:12)
[2020-08-12] MEDS ORDERED: SEVOFLURANE > 120 MINUTES. IH ONE (13:18)
[2020-08-12] MEDS ORDERED: GLYCOPYRROLATE 1 MG/5 ML VIAL. ONE (13:36)
[2020-08-12] MEDS ORDERED: NEOSTIGMINE METHYLSULFATE 5 MG/5 ML SYRINGE. ONE (13:36)
--- NOTE | 2020-08-12 13:56 | CONS ---
DATE OF CONSULTATION: 08/12/2020 ORTHOPEDIC EMERGENCY DEPARTMENT CONSULTATION CHIEF COMPLAINT: Right hip and right wrist fracture. HISTORY OF PRESENT ILLNESS: The patient is a 60-year-old male who was taking his laundry in his apartment complex and fell on the ice, landed on his right side, had immediate onset of inability to bear weight on the right hip or on the right wrist and had a lot of difficulty getting up. He actually laid on the ground he thinks about an hour before somebody found him and help him up came in by EMS. He denies any loss of consciousness. He did not hit his head and really complains mainly of the right hip and right wrist pain, although he landed on his knees a bit as well. PAST MEDICAL HISTORY: Significant for COPD. PAST SURGICAL HISTORY: Denies any past surgical history. ALLERGIES: No known drug allergies. MEDICATIONS: List is reviewed. SOCIAL HISTORY: Lives alone, previously independently ambulatory, is a 2 pack per day smoker, infrequent alcohol, no drug use. REVIEW OF SYSTEMS: Denies any chest pain, shortness of breath, recent febrile illness or constitutional symptoms. No head injury. No headache, visual changes, neck or back pain, focal weakness, numbness or tingling. Otherwise, negative review of systems. PHYSICAL EXAMINATION: HEENT: Atraumatic, normocephalic. HEART: Regular rate and rhythm. LUNGS: Clear to auscultation. VITAL SIGNS: Temperature 97.0 orally, 97.4 temporal artery; pulse 67, respirations 22, blood pressure 165/94, 95% saturation on room air. EXTREMITIES: Examination of his right hip, it is slightly shortened and internally rotated and has a lot of pain on any attempted movement or palpation. He has obvious deformity to his right wrist, but there is no evidence of any skin deformity or open fracture. Movement of his fingers is painful, but his sensation and capillary refill distally as well as distal pulses are intact. He has normal examination of the contralateral left hip, has slight abrasions on both knees, but no evidence of any joint effusion or ligamentous abnormality. Normal alignment, stability, bilateral ankles. Normal examination of the contralateral left wrist, bilateral elbows and shoulders and overall intact motor function, distal pulses, sensation, reflexes, skin in both upper and lower extremities throughout. IMAGING: X-rays show a displaced right femoral neck fracture and also a displaced angulated right distal radius fracture. IMPRESSION: Right femoral neck fracture and right distal radius fracture. TREATMENT PLAN: I had gone over with him the necessity for operative treatment on the femoral neck fracture with a hemiarthroplasty and the rationale for that as it is unlikely to heal due to compromise of the blood supply from the femoral neck. We had described the planned bipolar hemiarthroplasty and covered risks, benefits, postoperative course including the possibility of infection, nerve or blood vessel damage, femur fracture, premature wear or loosening, instability, medical or other anesthetic complications among others. Likewise, we talked through the procedure for fixation of the wrist fracture including possibility of nonhealing, nerve or blood vessel damage, stiffness, and continued pain and some stiffness present even under the best of circumstances after healing and we had a discussion about postoperative recovery as well and he has tentative plan to return home with home health and possibility of a platform walker attachment to help him steady himself, but adequately protect the healing wrist. All his questions were answered. Again, he wishes to proceed with surgical evaluation and treatment, which will occur now following adequate n.p.o. status as he had had some soda pop at about 5:00 this morning, but no solid food. RADHA FUCHS MD DR: KALIN/ashley JOB#: [id number] / [id number]
[2020-08-12] MEDS ORDERED: fentaNYL PF VIAL 100 MCG/2 ML VIAL ONE (14:13)
[2020-08-12] MEDS: fentaNYL PF VIAL 100 MCG/2 ML VIAL IVP PRN ×2 (14:14→14:19)
--- NOTE | 2020-08-12 14:44 | PDOC4 ---
Operative Note Operative Note Date of surgery: 08/12/2020 Preoperative diagnosis: Displaced right femoral neck fracture, displaced right distal radius fracture Postoperative diagnosis: Same Operative procedure: Right hip hemiarthroplasty for fracture, ORIF right distal radius fracture with locking plate and screw fixation Surgeon: Lee Director Child:Ignacio headley Anesthesia: General Estimated blood loss: 100 cc for both procedures Complications: None Operative indications: Please see my dictated orthopedic emergency department consultation for detailed operative indications Operative text: Patient was identified procedure verified patient placed in the supine position on the operating table. After adequate amounts of general anesthesia were administered and he was placed decubitus right side up using the Stulberg hip positioner and all bony prominences well-padded. The right hip was then prepped and draped in standard sterile fashion and after timeout was performed patient procedure identified and verified a standard posterior approach was carried out to the right hip with a curvilinear incision centered over the greater trochanter. Iliotibial band and gluteus fascia were split in line with their fibers Charnley retractor was placed external rotators were divided from their insertion and hip capsule was split in a T fashion. Femoral neck cut was made using the neck cutting guide and femoral head was removed and sized at a size 56. Femur was prepared with reaming and broaching to a size 14 which was trial fit with a 56 mm unipolar component which provided excellent stability faith of leg length and offset. Trial components were removed irrigation carried out normal saline solution with pulse lavage and a size 14 echo Bi-Metric porous plasma hip stem standard offset was impacted into place and a acetabular component assembled with a 56 mm outer diameter 28 mm inner diameter standard +0 neck length was impacted into place and reduced found to have equivalent leg length offset and stability. Hip capsule was repaired with max braid suture external rotators were likewise reattached intra-articular mixture was injected throughout the joint capsule and subcutaneous areas fascial closure accomplished with #1 PDS strata fix suture subcutaneous closure with buried 2-0 Vicryl suture skin closure with nate. A conor dressing was applied and attention was then turned to the right upper extremity which was prepped and draped in standard sterile fashion on the arm table with an upper arm tourniquet. After timeout was again performed and extremity verified, the right upper extremity was exsanguinated by Esmarch bandage tourniquet inflated to 250 mmHg a standard [place] volar approach was carried out to the right wrist and the distal radius fracture was reduced adequately under fluoroscopic visualization and a standard wide DVR cross lock titanium volar plate was placed and provisional fixation placed in the sliding hole. After verification of the plate placement and reduction distal locking screws were placed under fluoroscopic guidance and proximal row locking screws were likewise placed and after verification of excellent reduction, 2 additional shaft screws were placed in a nonlocking fashion and reduction and hardware placement was checked under multiple fluoroscopic views, thorough irrigation carried out with normal saline solution closure accomplished with buried Vicryl suture subcuticular Monocryl Steri-Strips and Mastisol sterile dressings were applied followed by a well- padded small volar Ortho-Glass splint. Fingers were noted be warm pink following deflation of the tourniquet and patient was returned to recovery room stable condition having tolerated the procedure well. RADHA FUCHS MD Aug 12, 2020 14:44
[2020-08-12] MEDS: HYDROmorphone 2 MG/ML VIAL IVP PRN ×4 (14:47→15:20)
[2020-08-12] MEDS ORDERED: WARFARIN 7.5 MG TABLET. PO ONE (16:00)
--- NOTE | 2020-08-12 17:21 | PDOC1 ---
History and Physical Date of Admission Date of Admission DATE: 08/12/20 TIME: 17:15 History of Present Illness History of Present Illness MR. Cadena, is a 60 year old male admit after a fall for acute right-sided hip and wrist pain. he was doing chores at his apartment complex when he fell on the ice. He could not get up, hip pain was too great and could not crawl for help. He fell on his right side and had sudden, severe pain, did not hit his head or lose any consciousness. He was admitted here last december for acute Isatu, Has COPD, still smokes, would like an MDI inhaler, reports nebs do not work Past Medical History Cardiovascular: No pertinent hx Pulmonary: COPD Infectious disease: No pertinent hx Past Surgical History Past Surgical History: No pertinent history Family History Family History: No Significant Social History Smoke: 2 packs per day ALCOHOL: rare Current Problem List Problem List Problems Medical Problems: (1) Fall due to ice or snow Status: Acute (2) Fracture of femoral neck, right, closed Status: Acute (3) Fracture of right distal radius Status: Acute Current Medications Current Medications Current Medications Fentanyl Citrate (Fentanyl 2ml Vial) 75 mcg 1X ONCE IVP Last administered on 08/12/20at 08:07; Start 08/12/20 at 08:00; Stop 08/12/20 at 08:01; Status DC Ondansetron HCl (Zofran) 4 mg PRN Q8HRS PRN IV NAUSEA/VOMITING; Start 08/12/20 at 09:00; Stop 08/12/20 at 11:23; Status DC Morphine Sulfate (Morphine Sulfate) 4 mg PRN Q2HR PRN IV PAIN; Start 08/12/20 at 09:00; Stop 08/12/20 at 11:23; Status DC Fentanyl Citrate (Fentanyl 2ml Vial) 50 mcg PRN Q1HR PRN IV PAIN; Start 08/12/20 at 09:00; Stop 08/12/20 at 11:23; Status DC Sodium Chloride 1,000 ml @ 75 mls/hr [id number] IV ; Start 08/12/20 at 09:00; Stop 08/13/20 at 08:59 Fentanyl Citrate (Fentanyl 2ml Vial) 25 mcg PRN Q5MIN PRN IVP MILD PAIN 1-3; Start 08/12/20 at 09:15; Stop 08/13/20 at 09:14 Fentanyl Citrate (Fentanyl 2ml Vial) 50 mcg PRN Q5MIN PRN IVP MODERATE PAIN 4-6 Last administered on 08/12/20at 14:19; Start 08/12/20 at 09:15; Stop 08/12/20 at 16:10; Status DC Morphine Sulfate (Morphine Sulfate) 1 mg PRN Q10MIN PRN IVP SEVERE PAIN 7-10; Start 08/12/20 at 09:15; Stop 08/12/20 at 16:10; Status DC Ringer's Solution 1,000 ml @ 30 mls/hr Q24H IV ; Start 08/12/20 at 09:15; Stop 08/12/20 at 21:14 Hydromorphone HCl (Dilaudid) 0.5 mg PRN Q10MIN PRN IVP SEVERE PAIN 7-10, 2nd CHOICE Last administered on 08/12/20at 15:20; Start 08/12/20 at 09:15; Stop 08/13/20 at 09:14 Prochlorperazine Edisylate (Compazine) 5 mg PACU PRN PRN IVP NAUSEA, MRX1 Last administered on 08/12/20at 15:04; Start 08/12/20 at 09:15; Stop 08/13/20 at 09:14 Propofol (Diprivan) 200 mg STK-MED ONCE IV ; Start 08/12/20 at 09:09; Stop 08/12/20 at 09:09; Status DC Lidocaine HCl (Lidocaine Pf 2% Vial) 5 ml STK-MED ONCE .ROUTE ; Start 08/12/20 at 09:09; Stop 08/12/20 at 09:09; Status DC Rocuronium [place] (Zemuron) 50 mg STK-MED ONCE .ROUTE ; Start 08/12/20 at 09:17; Stop 08/12/20 at 09:18; Status DC Fentanyl Citrate (Fentanyl 5ml Vial) 250 mcg STK-MED ONCE .ROUTE ; Start 08/12/20 at 10:11; Stop 08/12/20 at 10:11; Status DC Cefazolin Sodium/ Dextrose 50 ml @ 100 mls/hr 1X PREOP PRN IV PRIOR TO PROCEDURE Last administered on 08/12/20at 11:28; Start 08/12/20 at 11:00; Stop 08/13/20 at 10:59 Morphine Sulfate 5 mg/Ketorolac Tromethamine 30 mg/Ropivacaine 60 ml/Epinephrine HCl 0.5 mg/Sodium Chloride 100 ml @ 100 mls/hr 1X ONCE INT ART Last administered on 08/12/20at 11:43; Start 08/12/20 at 11:00; Stop 08/12/20 at 12:07; Status DC Hydrocortisone Sodium Succinate (Solu-CORTEF) 100 mg STK-MED ONCE .ROUTE ; Start 08/12/20 at 10:55; Stop 08/12/20 at 10:55; Status DC Tramadol HCl (Ultram) 50 mg PRN QID PRN PO MILD PAIN 1-3; Start 08/12/20 at 11:00 Oxycodone HCl (Roxicodone) 5 mg PRN Q3HRS PRN PO MODERATE PAIN 4-6; Start 08/12/20 at 11:00 Fentanyl Citrate (Fentanyl 2ml Vial) 25 mcg PRN Q1HR PRN IVP SEVERE PAIN 7-10; Start 08/12/20 at 11:00 Multivitamins (Thera M Plus) 1 tab DAILY PO ; Start 08/13/20 at 09:00 Senna/Docusate Sodium (Senna Plus) 1 tab DAILY PO ; Start 08/13/20 at 09:00 Polyethylene Glycol (miraLAX PACKET) 17 gm PRN DAILY PRN PO CONSTIPATION; Start 08/12/20 at 11:00 Ondansetron HCl (Zofran) 4 mg PRN Q4HRS PRN IVP NAUSEA/VOMITING; Start 08/12/20 at 11:00 Warfarin Sodium (Coumadin) 7.5 mg 1X ONCE PO Last administered on 08/12/20at 16:13; Start 08/12/20 at 16:00; Stop 08/12/20 at 16:01; Status DC Warfarin Sodium (Coumadin Per Pharmacy) 1 each PRN DAILY PRN MC SEE COMMENTS; Start 08/13/20 at 11:00 Magnesium Hydroxide (Milk Of Magnesia) 2,400 mg 1X PRN PRN PO CONSTIPATION; Start 08/13/20 at 06:00; Stop 08/14/20 at 05:59 Bisacodyl (Dulcolax Supp) 10 mg 1X PRN PRN AR CONSTIPATION; Start 08/13/20 at 16:00; Stop 08/14/20 at 15:59 Acetaminophen/ Hydrocodone Bitart (Lortab 7.5/325) 1 tab PRN Q4HRS PRN PO MILD PAIN, 2ND CHOICE; Start 08/12/20 at 11:00 Morphine Sulfate (Morphine Sulfate) 4 mg PRN Q2HR PRN IVP SEVERE PAIN 7-10; Start 08/12/20 at 11:00 Acetaminophen/ Hydrocodone Bitart (Lortab 7.5/325) 2 tab PRN Q4HRS PRN PO MODERATE PAIN, 2ND CHOICE; Start 08/12/20 at 11:00 Dextrose (Dextrose 50%-Water Syringe) 12.5 gm PRN Q15MIN PRN IV SEE COMMENTS; Start 08/12/20 at 11:00 Cefazolin Sodium/ Dextrose 50 ml @ 100 mls/hr Q6H IV ; Start 08/12/20 at 18:00; Stop 08/13/20 at 06:29 Vancomycin HCl (Vancomycin) 1 gm STK-MED ONCE .ROUTE Last administered on 08/12/20at 11:43; Start 08/12/20 at 12:13; Stop 08/12/20 at 12:13; Status DC Ropivacaine (Naropin 0.5%) 20 ml STK-MED ONCE .ROUTE Last administered on 08/12/20at 12:54; Start 08/12/20 at 12:41; Stop 08/12/20 at 12:42; Status DC Hydromorphone HCl (Dilaudid) 2 mg STK-MED ONCE .ROUTE ; Start 08/12/20 at 12:45; Stop 08/12/20 at 12:46; Status DC Dexamethasone Sodium Phosphate (Decadron) 4 mg STK-MED ONCE .ROUTE ; Start 08/12/20 at 12:58; Stop 08/12/20 at 12:58; Status DC Ondansetron HCl (Zofran) 4 mg STK-MED ONCE .ROUTE ; Start 08/12/20 at 12:58; Stop 08/12/20 at 12:58; Status DC Ephedrine Sulfate (ePHEDrine PF IN SALINE SYRINGE) 50 mg STK-MED ONCE IV ; Start 08/12/20 at 13:12; Stop 08/12/20 at 13:12; Status DC Sevoflurane (Ultane) 90 ml STK-MED ONCE IH ; Start 08/12/20 at 13:18; Stop 08/12/20 at 13:19; Status DC Glycopyrrolate (Robinul) 1 mg STK-MED ONCE .ROUTE ; Start 08/12/20 at 13:36; Stop 08/12/20 at 13:37; Status DC Neostigmine [place] (Neostigmine Methylsulfate) 5 mg STK-MED ONCE .ROUTE ; Start 08/12/20 at 13:36; Stop 08/12/20 at 13:37; Status DC Fentanyl Citrate (Fentanyl 2ml Vial) 100 mcg STK-MED ONCE .ROUTE ; Start 08/12/20 at 14:13; Stop 08/12/20 at 14:13; Status DC Active Scripts Active Reported Trelegy Ellipta 100-62.5-25 (Fluticasone/Umeclidin/Vilanter) 1 Each Blst.w.dev 1 Each IH DAILY Ibuprofen 800 Mg Tablet 800 Mg PO BID PRN Magnesium Citrate 296 Ml Solution 75 Ml PO HS Nexium Capsule (Esomeprazole Magnesium) 20 Mg Capsule.dr 1 Cap PO DAILY Proair Hfa Inhaler (Albuterol Sulfate) 8.5 Gm Hfa.aer.ad 2 Puff IH PRN Q4-6HRS PRN 21 Days Allergies Allergies: Coded Allergies: No Known Drug Allergies (Unverified , 08/12/20) ROS General: YES: Fatigue; No: Chills, Night Sweats, Malaise, Appetite, Other PSYCHOLOGICAL ROS: No: Anxiety, Behavioral Disorder, Concentration difficultie, Decreased libido, Depression, Disorientation, Hallucinations, Hostility, Irritablity, Memory difficulties, Mood Swings, Obsessive thoughts, Physical abuse, Sexual abuse, Sleep disturbances, Suicidal ideation, Other Eyes: No Blurry vision, No Decreased vision, No Double vision, No Dry eyes, No Excessive tearing, No Eye Pain, No Itchy Eyes, No Loss of vision, No Photophobia, No Scotomata, No Uses contacts, No Uses glasses, No Other HEENT: No: Heacaches, Visual Changes, Hearing change, Nasal congestion, Nasal discharge, Oral lesions, Sinus pain, Sore Throat, Epistaxis, Sneezing, Snoring, Tinnitus, Vertigo, Vocal changes, Other ENDOCRINE: No: Breast Changes, Galactorrhea, Hair Pattern Changes, Hot Flashes, Malaise/lethargy, Mood Swings, Palpitations, Polydipsia/polyuria, Skin Changes, Temperature Intolerance, Unexpected Weight Changes, Other Respiratory: YES: Shortness of breath, Tachypnea, Wheezing; No: Cough, Hemoptysis, Orthopnea, Pleuritic Pain, SOB with excertion, Sputum Changes, Stridor, Other Cardiovascular: No Chest Pain, No Palpitations, No Orthopnea, No Paroxysmal Noc. Dyspnea, No Edema, No Lt Headedness, No Other Gastrointestinal: Yes Nausea; No Vomiting, No Abdominal Pain, No Diarrhea, No Constipation, No Melena, No Hematochezia, No Other Musculoskeletal: Yes Gait Disturbance, Yes Joint Pain, Yes Joint Swelling Neurological: Yes Gait Disturbance; No Behavorial Changes, No Bowel/Bladder ControlChng, No Confusion, No Dizziness, No Headaches, No Impaired Coord/balance, No Memory Loss, No Numbness/Tingling, No Seizures, No Speech Problems, No Tremors, No Visual Changes, No Weakness, No Other Skin: No Dry Skin, No Eczema, No Hair Changes, No Lumps, No Mole Changes, No Mottling, No Nail Changes, No Pruritus, No Rash, No Skin Lesion Changes, No Other, No Acne Physical Exam General: Alert, Cooperative, mild distress, moderate distress HEENT: PERRLA, EOMI Lungs: Clear to auscultation, Normal air movement Heart: S1S2, RRR Extremities: No clubbing, No edema Skin: No rashes Neuro: Normal speech, Normal tone, Cranial nerves 3-12 NL Psych/Mental Status: Mental status NL, Mood NL Vitals Vitals Vital Signs Date Time Temp Pulse Resp B/P (MAP) Pulse Ox O2 Delivery O2 Flow Rate FiO2 08/12/20 15:30 97.3 61 16 143/81 (101) 93 Nasal Cannula 2.0 97.3 Labs Labs Laboratory Tests Test 08/12/20 08:05 08/12/20 08:50 White Blood Count 8.6 x10^3/uL (4.0-11.0) Red Blood Count 4.63 x10^6/uL (4.30-5.70) Hemoglobin 14.6 g/dL (13.0-17.5) Hematocrit 42.5 % (39.0-53.0) Mean Corpuscular Volume 92 fL (79-100) Mean Corpuscular Hemoglobin 31 pg (25-35) Mean Corpuscular Hemoglobin Concent 34 g/dL (31-37) Red Cell Distribution Width 14.0 % (11.5-14.5) Platelet Count 264 x10^3/uL (140-400) Neutrophils (%) (Auto) 88 % (31-73) Lymphocytes (%) (Auto) 8 % (24-48) Monocytes (%) (Auto) 3 % (0-9) Eosinophils (%) (Auto) 0 % (0-3) Basophils (%) (Auto) 0 % (0-3) Neutrophils # (Auto) 7.6 x10^3/uL (1.8-7.7) Lymphocytes # (Auto) 0.7 x10^3/uL (1.0-4.8) Monocytes # (Auto) 0.2 x10^3/uL (0.0-1.1) Eosinophils # (Auto) 0.0 x10^3/uL (0.0-0.7) Basophils # (Auto) 0.0 x10^3/uL (0.0-0.2) Segmented Neutrophils % 86 % (35-66) Lymphocytes % 12 % (24-48) Monocytes % 2 % (0-10) Platelet Estimate Adequate (ADEQUATE) Prothrombin Time 12.0 SEC (11.7-14.0) Prothromb Time International Ratio 0.9 (0.8-1.1) Sodium Level 140 mmol/L (136-145) Potassium Level 5.1 mmol/L (3.5-5.1) Chloride Level 102 mmol/L (98-107) Carbon Dioxide Level 30 mmol/L (21-32) Anion Gap 8 (6-14) Blood Urea Nitrogen 9 mg/dL (8-26) Creatinine 0.9 mg/dL (0.7-1.3) Estimated GFR (Cockcroft-Gault) 86.7 BUN/Creatinine Ratio 10 (6-20) Glucose Level 130 mg/dL (70-99) Calcium Level 8.4 mg/dL (8.5-10.1) Total Bilirubin 0.4 mg/dL (0.2-1.0) Aspartate Amino Transf (AST/SGOT) 16 U/L (15-37) Alanine Aminotransferase (ALT/SGPT) 35 U/L (16-63) Alkaline Phosphatase 109 U/L (46-116) Total Protein 6.9 g/dL (6.4-8.2) Albumin 3.3 g/dL (3.4-5.0) Albumin/Globulin Ratio 0.9 (1.0-1.7) SARS-CoV-2 Antigen (Rapid) Negative (NEGATIVE) Laboratory Tests Test 08/12/20 08:05 08/12/20 08:50 White Blood Count 8.6 x10^3/uL (4.0-11.0) Red Blood Count 4.63 x10^6/uL (4.30-5.70) Hemoglobin 14.6 g/dL (13.0-17.5) Hematocrit 42.5 % (39.0-53.0) Mean Corpuscular Volume 92 fL (79-100) Mean Corpuscular Hemoglobin 31 pg (25-35) Mean Corpuscular Hemoglobin Concent 34 g/dL (31-37) Red Cell Distribution Width 14.0 % (11.5-14.5) Platelet Count 264 x10^3/uL (140-400) Neutrophils (%) (Auto) 88 % (31-73) Lymphocytes (%) (Auto) 8 % (24-48) Monocytes (%) (Auto) 3 % (0-9) Eosinophils (%) (Auto) 0 % (0-3) Basophils (%) (Auto) 0 % (0-3) Neutrophils # (Auto) 7.6 x10^3/uL (1.8-7.7) Lymphocytes # (Auto) 0.7 x10^3/uL (1.0-4.8) Monocytes # (Auto) 0.2 x10^3/uL (0.0-1.1) Eosinophils # (Auto) 0.0 x10^3/uL (0.0-0.7) Basophils # (Auto) 0.0 x10^3/uL (0.0-0.2) Segmented Neutrophils % 86 % (35-66) Lymphocytes % 12 % (24-48) Monocytes % 2 % (0-10) Platelet Estimate Adequate (ADEQUATE) Prothrombin Time 12.0 SEC (11.7-14.0) Prothromb Time International Ratio 0.9 (0.8-1.1) Sodium Level 140 mmol/L (136-145) Potassium Level 5.1 mmol/L (3.5-5.1) Chloride Level 102 mmol/L (98-107) Carbon Dioxide Level 30 mmol/L (21-32) Anion Gap 8 (6-14) Blood Urea Nitrogen 9 mg/dL (8-26) Creatinine 0.9 mg/dL (0.7-1.3) Estimated GFR (Cockcroft-Gault) 86.7 BUN/Creatinine Ratio 10 (6-20) Glucose Level 130 mg/dL (70-99) Calcium Level 8.4 mg/dL (8.5-10.1) Total Bilirubin 0.4 mg/dL (0.2-1.0) Aspartate Amino Transf (AST/SGOT) 16 U/L (15-37) Alanine Aminotransferase (ALT/SGPT) 35 U/L (16-63) Alkaline Phosphatase 109 U/L (46-116) Total Protein 6.9 g/dL (6.4-8.2) Albumin 3.3 g/dL (3.4-5.0) Albumin/Globulin Ratio 0.9 (1.0-1.7) SARS-CoV-2 Antigen (Rapid) Negative (NEGATIVE) VTE Prophylaxis Ordered VTE Prophylaxis Devices: No VTE Pharmacological Prophylaxi: Yes Assessment/Plan Assessment/Plan fall, traumatic fracture, right wrist pain right hip fracture, now s/p surg, ORIF, Dr. Howard admit for pain control, needs Pt and Ot, rehab obese, BMI 36 tobacco use disorder, COPD, cont home nebs Justifications for Admission Other Justification RITA HICKEY MD Aug 12, 2020 17:21
[2020-08-12] MEDS: HYDROcodone/APAP 7.5/325MG 1 TAB TABLET PO PRN ×2 (17:29→23:23)
[2020-08-12] MEDS ORDERED: ALBUTEROL SULFATE 8GM INHALER. INH PRN (17:30)
[2020-08-12] MEDS: NICOTINE 21MG PATCH. TD SCH (18:30)
--- NOTE | 2020-08-12 18:49 | RAD ---
INDICATION: Reason: Postop right hip hemiarthroplasty / Spl. Instructions: / History: COMPARISON: Earlier same day IMPRESSION: Right hip: 3 views obtained. Right hip hemiarthroplasty without periprosthetic fracture or dislocatio n. Air and edema within the soft tissues as typically seen postoperatively. Electronically signed by: Jerald Garcia MD (08/12/2020 6:46 PM) [id number]
--- NOTE | 2020-08-12 19:42 | EKG ---
[facility] [address] [place] [address] Test Date: 2020-08-12 Test Time: 08:47:21 Pat Name: JORDY COLON Department: Room: Gender: M Material Dispatcher: : [id number] Requested By: SUSANA MCKEON Order Number: [id number] Reading MD: Measurements Intervals [place] Rate: 61 P: 60 [place]: 164 QRS: 6 QRSD: 98 T: 27 QT: 392 QTc: 396 Interpretive Statements SINUS RHYTHM INCOMPLETE RIGHT BUNDLE BRANCH BLOCK QRS(T) CONTOUR ABNORMALITY CONSIDER ANTEROSEPTAL MYOCARDIAL DAMAGE POSSIBLY ABNORMAL ECG RI6.01 No previous ECG available for comparison
[2020-08-12] MEDS: oxyCODONE IR 5 MG TABLET PO PRN (19:51)
[2020-08-12] MEDS: IPRATROPIUM/ALBUTEROL 20/100mcg/INH INHALER. INH SCH ×2 (20:50→21:16)
[2020-08-12] MEDS: ENOXAPARIN 40 MG/0.4 ML SYRINGE. SQ SCH (21:14)
[2020-08-13 03:10] VITALS: BP 138/65
[2020-08-13] MEDS: oxyCODONE IR 5 MG TABLET PO PRN ×3 (03:13→20:48)
[2020-08-13] MEDS ORDERED: MAGNESIUM HYDROXIDE 2,400 MG/30 ML ORAL.SUSP. PO PRN (06:00)
[2020-08-13 07:12] VITALS: BP 154/78
[2020-08-13] MEDS: MULTIVITAMIN with MINERAL TABLET. PO SCH (07:46)
[2020-08-13] MEDS: SENNOSIDES/DOCUSATE 8.6/50MG TABLET. PO SCH (07:46)
[2020-08-13] MEDS: NICOTINE 21MG PATCH. TD SCH (07:46)
[2020-08-13] MEDS: PANTOPRAZOLE 40 MG TABLET.DR. PO SCH (07:46)
[2020-08-13] MEDS: HYDROcodone/APAP 7.5/325MG 1 TAB TABLET PO PRN ×2 (07:49→13:44)
[2020-08-13] MEDS: IPRATROPIUM/ALBUTEROL 20/100mcg/INH INHALER. INH SCH ×3 (08:00→15:45)
[2020-08-13 08:04] LABS: BASO % 0 % (0-3); EOS % 0 % (0-3); HEMATOCRIT 35.4 % (39.0-53.0); HEMOGLOBIN 11.9 g/dL (13.0-17.5); LYMPH # 1.9 x10^3/uL (1.0-4.8); LYMPH % 16 % (24-48); MEAN CORPUSCULAR HEMOGLOBIN 31 pg (25-35); MEAN CORPUSCULAR HGB CONC 34 g/dL (31-37); MEAN CORPUSCULAR VOLUME 92 fL (79-100); MONO # 0.8 x10^3/uL (0.0-1.1); MONO % 7 % (0-9); NEUT # 9.2 x10^3/uL (1.8-7.7); NEUT % 77 % (31-73); PLATELET COUNT 241 x10^3/uL (140-400); RED BLOOD COUNT 3.84 x10^6/uL (4.30-5.70); RED CELL DISTRIBUTION WIDTH 13.9 % (11.5-14.5); WHITE BLOOD COUNT 12.1 x10^3/uL (4.0-11.0)
[2020-08-13 08:06] LABS: CALCIUM 7.6 mg/dL (8.5-10.1); CREATININE 0.8 mg/dL (0.7-1.3); GFR 99.3; POTASSIUM 3.6 mmol/L (3.5-5.1)
[2020-08-13 08:19] LABS: PROTHROMBIN TIME PATIENT 13.5 SEC (11.7-14.0)
--- NOTE | 2020-08-13 09:36 | NUR ---
SW following. Discussed with RN, pt from home, room air, clear liquid diet, rapid COVID-19 negative. Pt had surgery on 08/12/20. PT/OT ordered. Pt wanting to go home. SW will continue to follow.
[2020-08-13 10:25] VITALS: BP 134/65
[2020-08-13] MEDS: MORPHINE SULFATE 4 MG/ML VIAL. IVP PRN ×2 (11:04→19:16)
[2020-08-13 15:00] VITALS: BP 162/80
[2020-08-13] MEDS: IBUPROFEN 400 MG TABLET. PO PRN (15:45)
[2020-08-13] MEDS ORDERED: BISACODYL 10 MG SUPP.RECT. PR PRN (16:00)
[2020-08-13] MEDS ORDERED: WARFARIN 5 MG TABLET. PO ONE (16:00)
--- NOTE | 2020-08-13 17:33 | PDOC ---
[employer] PROGRESS NOTE Date of Service DOS: DATE: 08/13/20 TIME: 17:30 Chief Complaint Chief Complaint fall, traumatic fracture s/p ORIF 08/12/20 right wrist pain right hip fracture, now s/p surg, ORIF, Dr. Howard admit for pain control, needs Pt and Ot, rehab obese, BMI 36 tobacco use disorder, COPD, cont home nebs History of Present Illness History of Present Illness 08/13/20 No acute events overnight. Pain is well controlled. will continue with PT/OT. > 50% time spent in patient chart, labs, and image review and discussion with RN and SW 60 year old male admit after a fall for acute right-sided hip and wrist pain. he was doing chores at his apartment complex when he fell on the ice. He could not get up, hip pain was too great and could not crawl for help. He fell on his right side and had sudden, severe pain, did not hit his head or lose any consciousness. He was admitted here last december for acute Isatu, Has COPD, still smokes, would like an MDI inhaler, reports nebs do not work Vitals/I&O Vitals/I&O: Vital Signs Date Time Temp Pulse Resp B/P (MAP) Pulse Ox O2 Delivery O2 Flow Rate FiO2 08/13/20 15:00 97.9 103 18 162/80 (107) 91 Room Air 97.9 08/13/20 00:23 2.0 I & O 08/12/20 08/12/20 08/13/20 15:00 23:00 07:00 Intake Total 900 ml Output Total 550 ml 275 ml Balance -550 ml 625 ml Physical Exam General: Alert, Cooperative, mild distress, moderate distress Extremities: No clubbing, No edema, Other (Dressings are C/D/I) Skin: No rashes Labs Labs: Laboratory Tests Test 08/13/20 07:15 White Blood Count 12.1 x10^3/uL (4.0-11.0) Red Blood Count 3.84 x10^6/uL (4.30-5.70) Hemoglobin 11.9 g/dL (13.0-17.5) Hematocrit 35.4 % (39.0-53.0) Mean Corpuscular Volume 92 fL (79-100) Mean Corpuscular Hemoglobin 31 pg (25-35) Mean Corpuscular Hemoglobin Concent 34 g/dL (31-37) Red Cell Distribution Width 13.9 % (11.5-14.5) Platelet Count 241 x10^3/uL (140-400) Neutrophils (%) (Auto) 77 % (31-73) Lymphocytes (%) (Auto) 16 % (24-48) Monocytes (%) (Auto) 7 % (0-9) Eosinophils (%) (Auto) 0 % (0-3) Basophils (%) (Auto) 0 % (0-3) Neutrophils # (Auto) 9.2 x10^3/uL (1.8-7.7) Lymphocytes # (Auto) 1.9 x10^3/uL (1.0-4.8) Monocytes # (Auto) 0.8 x10^3/uL (0.0-1.1) Eosinophils # (Auto) 0.0 x10^3/uL (0.0-0.7) Basophils # (Auto) 0.0 x10^3/uL (0.0-0.2) Prothrombin Time 13.5 SEC (11.7-14.0) Prothromb Time International Ratio 1.1 (0.8-1.1) Sodium Level 138 mmol/L (136-145) Potassium Level 3.6 mmol/L (3.5-5.1) Chloride Level 102 mmol/L (98-107) Carbon Dioxide Level 27 mmol/L (21-32) Anion Gap 9 (6-14) Blood Urea Nitrogen 9 mg/dL (8-26) Creatinine 0.8 mg/dL (0.7-1.3) Estimated GFR (Cockcroft-Gault) 99.3 Glucose Level 115 mg/dL (70-99) Calcium Level 7.6 mg/dL (8.5-10.1) Assessment and Plan Assessmemt and Plan Problems Medical Problems: (1) Fall due to ice or snow Status: Acute (2) Fracture of femoral neck, right, closed Status: Acute (3) Fracture of right distal radius Status: Acute Comment Review of Relevant I have reviewed the following items fannie (where applicable) has been applied. Medications: Current Medications Medications (Trade) Dose Ordered Sig/Vineet Route PRN Reason Start Time Stop Time Status Last Admin Dose Admin Multivitamins (Thera M Plus) 1 tab DAILY PO 08/13/20 09:00 08/13/20 07:46 Senna/Docusate Sodium (Senna Plus) 1 tab DAILY PO 08/13/20 09:00 08/13/20 07:46 Warfarin Sodium (Coumadin Per Pharmacy) 1 each PRN DAILY PRN MC SEE COMMENTS 08/13/20 11:00 08/13/20 14:09 Cefazolin Sodium/ Dextrose 50 ml @ 100 mls/hr Q6H IV 08/12/20 18:00 08/13/20 06:29 DC 08/13/20 05:40 Pantoprazole Sodium (Protonix) 40 mg DAILYAC PO 08/13/20 07:30 08/13/20 07:46 Albuterol/ Ipratropium (Combivent Respimat 20-100 Mcg) 1 puff RTQID INH 08/12/20 20:00 08/13/20 15:45 Enoxaparin Sodium (Lovenox 40mg Syringe) 40 mg Q24H SQ 08/12/20 21:00 08/12/20 21:14 Nicotine (Nicoderm Cq 21mg) 1 patch DAILY TD 08/12/20 18:30 08/13/20 07:46 Warfarin Sodium (Coumadin) 5 mg 1X WARF ONCE PO 08/13/20 16:00 08/13/20 16:01 DC 08/13/20 16:27 Justifications for Admission Other Justification BELKIS WORTHY MD Aug 13, 2020 17:33
[2020-08-13 19:00] VITALS: BP 142/79
[2020-08-13] MEDS: ENOXAPARIN 40 MG/0.4 ML SYRINGE. SQ SCH (20:48)
[2020-08-13 23:00] VITALS: BP 137/73
[2020-08-14] MEDS: IBUPROFEN 400 MG TABLET. PO PRN ×2 (01:36→13:12)
[2020-08-14] MEDS: oxyCODONE IR 5 MG TABLET PO PRN ×5 (01:36→22:30)
[2020-08-14 02:58] VITALS: BP 136/72
[2020-08-14 07:00] VITALS: BP_SYST 136; BP_SYST 137; BP_DIAS 49; BP_DIAS 64
[2020-08-14] MEDS: MORPHINE SULFATE 4 MG/ML VIAL. IVP PRN ×3 (07:30→22:29)
[2020-08-14 07:31] LABS: PROTHROMBIN TIME PATIENT 13.7 SEC (11.7-14.0)
[2020-08-14] MEDS: IPRATROPIUM/ALBUTEROL 20/100mcg/INH INHALER. INH SCH ×4 (08:00→21:03)
--- NOTE | 2020-08-14 09:17 | SNU/HH DC ---
DISCHARGE WITH HOME HEALTH DISCHARGE INFORMATION: Discharge Date: Aug 14, 2020 Final Diagnosis: Problems Medical Problems: (1) Fall due to ice or snow Status: Acute (2) Fracture of femoral neck, right, closed Status: Acute (3) Fracture of right distal radius Status: Acute Condition on Discharge: Stable CODE STATUS: Code Status: Full HOME HEALTH: Face to Face: I certify this patient is under my care and that I, or a nurse practitioner or physician's librarian assistant working with me, had a face to face encounter that meets the physician face to face encounter requirements with this patient on []. Medical Complications: Falls Care Home For: Assess & Educate Safety, Assess/Skilled Observatio, Medication Management, Pain Management, field insurance sales manager For Eval/Treatment: Yes Physical Therapy For: Evalulation/Treatment Occupational Therapy For: Evaluation/Treatment Home Health Aide For: Self-care Pt Meets Homebound Status: Poor coordination w/ amb., Extreme weakness w/ amb., Fatigue w/ amb., Limited distance walking, Unable to negotiate home POST DISCHARGE ORDERS: Activity Instructions for Disc: Activity as tolerated Weight Bearing Status after Di: Non weight bearing DIET AFTER DISCHARGE: Cardiac Wound/Incision Care: Ice to area for comfort CHECKS AFTER DISCHARGE: Checks after discharge: Check blood press - daily, Check your Temp as needed, Weigh Yourself Daily FOLLOW-UP: Follow up with: PCP within 2 weeks of discharge Follow Up With: Orthopedics as scheduled DC TO SNF LABS: CBC, CMP TREATMENT/EQUIPMENT ORDERS: Adaptive Equipment Issued: Bath Bench, Commode, Walker CERTIFICATION STATEMENT: Certification Statement: Certification Statement: Based on the above finding, I certify that this patient is confined to the home and needs intermittent penitentiary care, physical therapy and/or speech therapy, or continues to need occupational therapy.~ This patient is under my care, and I have initiated the establishment of the plan of care.~ This patient will be followed by myself or a community physician who will periodically review the plan of care. Home Meds Reported Medications Fluticasone/Umeclidin/Vilanter (Trelegy Ellipta 100-62.5-25) 1 Each Blst.w.dev, 1 EACH IH DAILY for copd 01/17/20 Ibuprofen (IBUPROFEN) 800 Mg Tablet, 800 MG PO BID PRN for INFLAMMATION, TAB 01/17/20 Magnesium Citrate (MAGNESIUM CITRATE) 296 Ml Solution, 75 ML PO HS for con stipation, #296 ML 01/17/20 Esomeprazole Magnesium (NEXIUM CAPSULE) 20 Mg Capsule.dr, 1 CAP PO DAILY for ge rd, #30 CAP 2 Refills 01/17/20 Albuterol Sulfate (PROAIR HFA INHALER) 8.5 Gm Hfa.aer.ad, 2 PUFF IH PRN Q4-6HRS PRN for wheezing for 21 Days, #1 INHALER 0 Refills 01/17/20 BELKIS WORTHY MD Aug 14, 2020 09:17
[2020-08-14] MEDS: MULTIVITAMIN with MINERAL TABLET. PO SCH (09:32)
[2020-08-14] MEDS: SENNOSIDES/DOCUSATE 8.6/50MG TABLET. PO SCH (09:32)
[2020-08-14] MEDS: NICOTINE 21MG PATCH. TD SCH (09:32)
[2020-08-14] MEDS: PANTOPRAZOLE 40 MG TABLET.DR. PO SCH (09:33)
--- NOTE | 2020-08-14 10:41 | NUR ---
KAMLA following. Discussed with RN, pt from home, room air, GI soft. PT/OT recommending acute rehab. KAMLA met with pt, pt agreeable, does not have a preference. KAMLA spoke with [facility] and [facility], they are both in network with pt's insurance. Referral faxed to both places, awaiting acceptance decision and insurance auth. Choice of vendor form completed. KAMLA will continue to follow. Addendum: 08/14/20 at 1452 by HAMIDA CASON Pt accepted at [facility], pending insurance auth.
[2020-08-14 11:00] VITALS: BP 144/73
[2020-08-14 15:00] VITALS: BP 145/78
--- NOTE | 2020-08-14 15:00 | PDOC ---
[employer] PROGRESS NOTE Date of Service DOS: DATE: 08/14/20 TIME: 15:00 Chief Complaint Chief Complaint fall, traumatic fracture s/p ORIF 08/12/20 right wrist pain right hip fracture, now s/p surg, ORIF, Dr. Howard admit for pain control, needs Pt and Ot, rehab obese, BMI 36 tobacco use disorder, COPD, cont home nebs Mild protein malnutrition History of Present Illness History of Present Illness 08/13/20 No acute events overnight. Pain is well controlled. will continue with PT/OT. > 50% time spent in patient chart, labs, and image review and discussion with RN and SW 60 year old male admit after a fall for acute right-sided hip and wrist pain. he was doing chores at his apartment complex when he fell on the ice. He could not get up, hip pain was too great and could not crawl for help. He fell on his right side and had sudden, severe pain, did not hit his head or lose any consciousness. He was admitted here last december for acute Isatu, Has COPD, still smokes, would like an MDI inhaler, reports nebs do not work Vitals/I&O Vitals/I&O: Vital Signs Date Time Temp Pulse Resp B/P (MAP) Pulse Ox O2 Delivery O2 Flow Rate FiO2 08/14/20 11:00 98.1 82 16 144/73 (96) 94 Room Air 98.1 08/14/20 08:00 2.0 I & O 08/13/20 08/13/20 08/14/20 15:00 23:00 07:00 Intake Total 50 ml Output Total 425 ml Balance -375 ml Physical Exam General: Alert, Cooperative, mild distress, moderate distress Extremities: No clubbing, No edema, Other (Dressings are C/D/I) Skin: No rashes Labs Labs: Laboratory Tests Test 08/14/20 06:35 Prothrombin Time 13.7 SEC (11.7-14.0) Prothromb Time International Ratio 1.1 (0.8-1.1) Assessment and Plan Assessmemt and Plan Problems Medical Problems: (1) Fall due to ice or snow Status: Acute (2) Fracture of femoral neck, right, closed Status: Acute (3) Fracture of right distal radius Status: Acute Comment Review of Relevant I have reviewed the following items fannie (where applicable) has been applied. Medications: Current Medications Medications (Trade) Dose Ordered Sig/Vineet Route PRN Reason Start Time Stop Time Status Last Admin Dose Admin Warfarin Sodium (Coumadin) 5 mg 1X WARF ONCE PO 08/13/20 16:00 08/13/20 16:01 DC 08/13/20 16:27 Justifications for Admission Other Justification BELKIS WORTHY MD Aug 14, 2020 15:00
[2020-08-14] MEDS ORDERED: WARFARIN 7.5 MG TABLET. PO ONE (16:00)
[2020-08-14 19:30] VITALS: BP 148/70
[2020-08-14] MEDS: ENOXAPARIN 40 MG/0.4 ML SYRINGE. SQ SCH (21:03)
[2020-08-14 23:35] VITALS: BP 135/88
[2020-08-15] MEDS: oxyCODONE IR 5 MG TABLET PO PRN ×2 (01:25→12:53)
[2020-08-15] MEDS: IBUPROFEN 400 MG TABLET. PO PRN ×2 (01:25→12:53)
[2020-08-15 03:53] VITALS: BP 139/69
[2020-08-15 07:00] VITALS: BP 128/66
[2020-08-15] MEDS: PANTOPRAZOLE 40 MG TABLET.DR. PO SCH (08:24)
[2020-08-15] MEDS: MORPHINE SULFATE 4 MG/ML VIAL. IVP PRN (08:24)
[2020-08-15] MEDS: MULTIVITAMIN with MINERAL TABLET. PO SCH (08:24)
[2020-08-15] MEDS: SENNOSIDES/DOCUSATE 8.6/50MG TABLET. PO SCH (08:25)
[2020-08-15] MEDS: NICOTINE 21MG PATCH. TD SCH (08:25)
[2020-08-15] MEDS: HYDROcodone/APAP 7.5/325MG 1 TAB TABLET PO PRN (08:27)
[2020-08-15] MEDS: IPRATROPIUM/ALBUTEROL 20/100mcg/INH INHALER. INH SCH ×2 (08:28→12:50)
--- NOTE | 2020-08-15 09:08 | PDOC ---
[employer] PROGRESS NOTE Date of Service DOS: DATE: 08/15/20 TIME: 09:01 Chief Complaint Chief Complaint fall, traumatic fracture s/p ORIF 08/12/20 right wrist pain right hip fracture, now s/p surg, ORIF, Dr. Howard admit for pain control, needs Pt and Ot, rehab obese, BMI 36 tobacco use disorder, COPD, cont home nebs History of Present Illness History of Present Illness 08/15/20 Patient was seen and examined. He was sitting up and talkative Discussed d/c to rehab DWRN Chart reviewed 08/13/20 No acute events overnight. Pain is well controlled. will continue with PT/OT. > 50% time spent in patient chart, labs, and image review and discussion with RN and SW 60 year old male admit after a fall for acute right-sided hip and wrist pain. he was doing chores at his apartment complex when he fell on the ice. He could not get up, hip pain was too great and could not crawl for help. He fell on his right side and had sudden, severe pain, did not hit his head or lose any consciousness. He was admitted here last december for acute Isatu, Has COPD, still smokes, would like an MDI inhaler, reports nebs do not work Vitals/I&O Vitals/I&O: Vital Signs Date Time Temp Pulse Resp B/P (MAP) Pulse Ox O2 Delivery O2 Flow Rate FiO2 08/15/20 08:27 Room Air 08/15/20 07:00 97.2 82 16 128/66 (86) 92 97.2 08/14/20 08:00 2.0 I & O 08/14/20 08/14/20 08/15/20 15:00 23:00 07:00 Intake Total 480 ml Output Total 500 ml 300 ml Balance -500 ml 180 ml Physical Exam General: Alert, Cooperative, No acute distress Extremities: No clubbing, No edema, Other (Dressings are C/D/I) Skin: No rashes Review of Systems Review of Systems: Patient denied fever, headache, changes in bowel or bladder Assessment and Plan Assessmemt and Plan Problems Medical Problems: (1) Fall due to ice or snow Status: Acute (2) Fracture of femoral neck, right, closed Status: Acute (3) Fracture of right distal radius Status: Acute fall, traumatic fracture s/p ORIF 08/12/20 right wrist pain right hip fracture, now s/p surg, ORIF, Dr. Howard admit for pain control, needs Pt and Ot, rehab obese, BMI 36 tobacco use disorder, COPD, cont home nebs Plan D/c to SNU tomorrow Cont PRN pain medication Cont PRN nausea medication Cont DVT prophylaxis Cont OT/PT Cont home meds Full code Comment Review of Relevant I have reviewed the following items fannie (where applicable) has been applied. Medications: Current Medications Medications (Trade) Dose Ordered Sig/Vineet Route PRN Reason Start Time Stop Time Status Last Admin Dose Admin Warfarin Sodium (Coumadin) 7.5 mg 1X WARF ONCE PO 08/14/20 16:00 08/14/20 16:01 DC 08/14/20 16:34 Justifications for Admission Other Justification ANGEL GARCIA III DO Aug 15, 2020 09:08
--- NOTE | 2020-08-15 09:11 | SNU/HH DC ---
DISCHARGE ORDERS DISCHARGE INFORMATION: DISCHARGE DATE: Aug 14, 2020 FINAL DIAGNOSIS Problems Medical Problems: (1) Fall due to ice or snow Status: Acute (2) Fracture of femoral neck, right, closed Status: Acute (3) Fracture of right distal radius Status: Acute CONDITION ON DISCHARGE: Stable CODE STATUS: Code Status: Full GROUP HOME: SNF STAY <30 DAYS: Yes HOSPICE: HOSPICE: No HOSPICE EVAL & TREAT: No LTAC: ADMIT TO LTAC: No POST DISCHARGE ORDERS: ACTIVITY ORDERS: Activity as tolerated WEIGHT BEARING STATUS: Non weight bearing DIET AFTER DISCHARGE: Cardiac WOUND/INCISION CARE: Ice to area for comfort CHECKS AFTER DISCHARGE: CHECKS AFTER DISCHARGE: Check blood press - daily, Check your Temp as needed, Weigh Yourself Daily FOLLOW-UP: PHYSICIAN FOLLOW-UP: PCP within 2 weeks of discharge ADDITIONAL FOLLOW-UP: Orthopedics as scheduled LAB ORDERS FOR FOLLOW-UP: CBC, CMP TREATMENT/EQUIPMENT ORDERS: ADAPTIVE EQUIPMENT NEEDED: Bath Bench, Commode, Walker Physical Therapy For: Evalulation/Treatment Occupational Therapy For: Evaluation/Treatment DISCHARGE MEDICATIONS: Home Meds Reported Medications Fluticasone/Umeclidin/Vilanter (Trelegy Ellipta 100-62.5-25) 1 Each Blst.w.dev, 1 EACH IH DAILY for copd 01/17/20 Ibuprofen (IBUPROFEN) 800 Mg Tablet, 800 MG PO BID PRN for INFLAMMATION, TAB 01/17/20 Magnesium Citrate (MAGNESIUM CITRATE) 296 Ml Solution, 75 ML PO HS for constipation, #296 ML 01/17/20 Esomeprazole Magnesium (NEXIUM CAPSULE) 20 Mg Capsule.dr, 1 CAP PO DAILY for gerd, #30 CAP 2 Refills 01/17/20 Albuterol Sulfate (PROAIR HFA INHALER) 8.5 Gm Hfa.aer.ad, 2 PUFF IH PRN Q4-6HRS PRN for wheezing for 21 Days, #1 INHALER 0 Refills 01/17/20 ANGEL GARCIA III DO Aug 15, 2020 09:11
--- NOTE | 2020-08-15 09:56 | NUR ---
KAMLA following. Discussed with RN, pt from home, room air, GI soft, COVID-19 negative. Pt accepted at [facility] pending insurance auth. KAMLA reached out to [facility] to determine progress with insurance auth. Awaiting response. KAMLA will continue to follow. Addendum: 08/15/20 at 1324 by HAMIDA CASON Pt's insurance approved transfer to Acute Rehab, [facility] arranged transportation for 1529. RN notified.
[2020-08-15 11:00] VITALS: BP 132/71
[2020-08-15 12:38] LABS: PROTHROMBIN TIME PATIENT 14.5 SEC (11.7-14.0)
--- NOTE | 2020-08-15 13:10 | NUR ---
Pharmacy Warfarin Dosing Note S:Pharmacy consulted to assist with anticoagulation therapy started with target INR: 1.6 - 2.5 O:JORDY COLON is a 60 year old M with Hip Fracture LABS: Last INR: 1.2 Last HGB: 11.9 Last HCT: 35.4 Last PLT: 241 Last dose of 7.5 mg given on 08/14/20 at 1613 Previous Regimen: Vitamin K given: Drug Interaction Changes: Ongoing Drug Interactions: A:INR of 1.2 is below desired range. Target range for this patient is: 1.6 - 2.5 P: Warfarin dose: 10 mg Today at 1600 Bridge Therapy: Next INR due IN AM Pharmacy anticoagulation service will continue to follow. NICHOLAS GILMAN RPH, 08/15/20 [id number]
[2020-08-15] MEDS ORDERED: WARFARIN 5 MG TABLET. PO ONE (16:00)
--- NOTE | 2020-08-15 17:07 | PATHOLOGY ---
[facility] Accession Number: [id number] . 01 Material submitted: . hip - RIGHT HIP BONES. Modifiers: right . 01 Clinical history: . RIGHT HIP HEMIARTHROPLASTY FALL RT HIP TX . 02 Diagnosis: Femoral head and separate segment of bone, right hip hemiarthroplasty: - Focal fragmentation of bony trabeculae and recent intertrabecular hemorrhage consistent with fracture. . (JPM:mm; 08/15/2020) [facility] 08/15/2020 1555 Local . 02 Comment: There is no evidence of malignancy. . (JPM:mml; 08/15/2020) . 02 Electronically signed: . Neel Haynes MD, Pathologist NPI- [id number] . 01 Gross description: . The specimen is received in formalin, labeled "Abigail Patel hip bones". Received is a femoral head measuring 5.2 x 5.2 x 5.4 cm and separately submitted fractured femoral neck measuring 3.8 x 3.7 x 2.0 cm in aggregate dimensions. The articular surface of the femoral head is pale juárez and smooth in appearance. Sectioning reveals yellow-juárez cut surfaces throughout with the distal most aspect displaying a hemorrhagic appearance, consistent with fracture site. No distinct nodules or lesions are grossly identified. The specimen is submitted representatively in cassette A1, following decalcification. (CAA; 08/14/2020) QAC/QAC 08/14/2020 1002 Local . 02 Pathologist provided ICD-10: S72.091A . 02 CPT . 314732, [id number] Specimen Comment: Report sent to Performed at: [address], [place], [place] [id number] MD Rikki Vázquez MD Phone: [phone] Performed at: 02 [facility] [address] [place], [place] [id number] MD Neel Haynes MD Phone: [phone]
--- NOTE | 2020-08-15 18:15 | NUR ---
pt is discharged to [facility] via wheelchair via LINDA Carranza at 1523. pt is in stable condition. pt has all belongings with him. gave report to Zunilda at [facility] and she stated she had no further questions for me. discharge packet given to transportation.
--- NOTE | 2020-08-16 13:11 | DS ---
DATE OF DISCHARGE: 08/15/2020 ADMISSION DIAGNOSES: Fall with right hip fracture and right radius fracture. DISCHARGE DIAGNOSES: Postoperative open reduction and internal fixation of right hip hemiarthroplasty and open reduction and internal fixation of the right distal radius fracture. CONSULTS: Orthopedics. HOSPITAL COURSE: The patient is a pleasant middle-aged male who presented with a fall. He suffered 2 fractures, one to the right wrist and one to the right hip. He was admitted. We consulted Orthopedics and he was taken for ORIF. Post-procedure, he did well. Yesterday, I saw and examined him. He is at his baseline. We discharged to [facility]. DISPOSITION: [facility]. ACTIVITY: As tolerated. DIET: Low sodium. MEDICATIONS: ProAir 2 puffs q.4 hours p.r.n., ibuprofen 800 b.i.d., fluticasone nasal spray, magnesium citrate 75 mL at bedtime, Nexium 1 daily, Coumadin 10 daily for postop DVT prophylaxis and p.r.n. hydrocodone/Tylenol 7.5 q.4 hours p.r.n. TOTAL TIME: 32 minutes. ANGEL GARCIA DO DR: SREEKANTH/ashley JOB#: [id number] / [id number]
== END 2020-08-15 15:23 | DRG 522 ==
LOC: ER 07:33 → 4 NORTH 09:28
PROVIDERS: ADMIT Internal Medicine; ATTEND Internal Medicine
PROC: 0SRR0JZ Replacement of Right Hip Joint, Femoral Surface with Synthetic Substitute, Open Approach (ICD-10-PCS; principal; 2020-08-12 11:30)
PROC: 0PSH04Z Reposition Right Radius with Internal Fixation Device, Open Approach (ICD-10-PCS; 2020-08-12 11:30)
DX: S72.001A Fracture of unspecified part of neck of right femur, initial encounter for closed fracture (principal); S52.501A Unspecified fracture of the lower end of right radius, initial encounter for closed fracture; E44.1 Mild protein-calorie malnutrition; E66.9 Obesity, unspecified; Z68.36 Body mass index [BMI] 36.0-36.9, adult; F17.210 Nicotine dependence, cigarettes, uncomplicated; J44.9 Chronic obstructive pulmonary disease, unspecified; S80.211A Abrasion, right knee, initial encounter; S80.212A Abrasion, left knee, initial encounter; W00.0XXA Fall on same level due to ice and snow, initial encounter; Z20.822 Contact with and (suspected) exposure to COVID-19; Y93.89 Activity, other specified; Y92.89 Other specified places as the place of occurrence of the external cause; Y99.8 Other external cause status
CPT/HCPCS: 36415; 71045; 73110; 73501; 73502; 76000; 80048; 80053; 85007; 85025; 85610; 87426; 93005; 96374; J0171; J0690; J0780; J1100; J1170; J1650; J1720; J1885; J2270; J2405; J2704; J2710; J2795; J3010; J3370; J3490; J7030; U0003; 97110-GP; 97116-GP; 97530-GP; 97535-GO; 99285-25; G0378